=== PATIENT | male | born 1945 | race Caucasian/White ===

== ENCOUNTER 2020-11-17 05:33 | Observation (INO) ==
[2020-11-17] MEDS ORDERED: MECLIZINE HCL 25 MG TAB PO STA (05:46)
[2020-11-17] MEDS ORDERED: SODIUM CHLORIDE 0.9% 1000ML 500 ML IV ONE (05:54)
[2020-11-17] MEDS ORDERED: ONDANSETRON INJ 2 MG/ML 2 ML VIAL IV STA (05:54)
--- NOTE | 2020-11-17 05:54 | Emergency Department Note ---
History of Present Illness General Chief complaint: Ear Pain/Problem Stated complaint: OFF BALANCE, EAR PAIN Time Seen by Provider: 11/17/20 05:46 History of Present Illness This 75-year-old presents to the ER complaining of constant vertigo since last night after having surgery yesterday on his ear by Dr. Irving Location: Generalized Quality: Dizzy Severity: Moderate Duration: Tonight Timing: Tonight Context: Patient was concerned and came in Modifying factors: better with rest; worse with activity Patient states he has never been this dizzy before in his life. He had ear surgery yesterday. Patient had a cholesteatoma repaired. Patient denies chest pain, dyspnea, localized weakness, fever, chills. He states he is too dizzy to walk. 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 #2 ea 12/26/19 11/12/20 Rx miscellaneous medical supply #1 ea 01/09/20 11/12/20 Rx nitroglycerin 0.4 mg sublingual 0.4 mg SUBLINGUAL Q5M PRN 05/04/20 11/17/20 History tablet ranolazine 500 mg tablet,extended 500 mg PO BID 07/23/20 11/17/20 History release,12 hr miscellaneous medical supply #1 ea 10/09/20 11/12/20 Rx ferrous sulfate 325 mg (65 mg 325 mg PO Q OTHER DAY tab 10/30/20 11/17/20 History iron) tablet amlodipine 5 mg PO QAM 11/13/20 11/17/20 History clopidogrel 75 mg PO QPM 11/13/20 11/17/20 History docusate sodium 100 mg PO QAM 11/13/20 11/17/20 History metoprolol succinate 50 mg PO QAM 11/13/20 11/17/20 History pantoprazole 40 mg PO QPM 11/13/20 11/17/20 History pravastatin 40 mg PO QPM 11/13/20 11/17/20 History vitamin B complex 1 tab PO QAM 11/13/20 11/17/20 History hydrocodone-acetaminophen 1 tab PO Q4H PRN #20 tab 11/16/20 11/17/20 Rx tadalafil [Cialis] 10 - 20 mg PO DIRECTED PRN 11/17/20 11/17/20 History Allergies Allergy/AdvReac Type Severity Reaction Status Date / Time prednisone Allergy Intermediate swelling, Verified 11/17/20 07:29 retained fluid Past Med/Surg History Medical History Acid reflux Anemia 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 hemolytic anemia 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 Benign neoplasm of appendix Coronary artery disease s/p stents x2 (2004), stent x1 (04/02/20) after abnormal stress test Hearing deficit High cholesterol Hypertension MGUS (monoclonal gammopathy of unknown significance) Monoclonal paraproteinemia Osteoarthritis Peripheral vascular disease Surgical History H/O colonoscopy History of amputation of toe x2 (right big toe, 2nd toe) History of cardiac cath 2004 (stent x2) 04/02/2020 ([facility] > proximal left circumflex arthrectomy and stent History of carpal tunnel surgery right wrist History of cholecystectomy History of procedure for peripheral vascular disease RLE cook zilver stent (2017) History of tooth extraction upper partial History of total left knee replacement (TKR) Hx of cataract surgery Status post below knee amputation of right lower extremity 2017 Family History Father Hearing loss Heart disease Myocardial infarction Hypertension Mother Heart disease Myocardial infarction Other No family history of adverse response to anesthesia No family history of allergies No family history of bleeding disorder Denies family history of Ovarian cancer Prostate cancer Breast cancer Colorectal cancer Cancer Stroke Social History Smoking Status: Never smoker Second Hand Exposure: No; Hx Alcohol Use: No Hx Substance Use: No Preferred Language: Venezuelan Communication Ability: Effective Visual Impairment: No Limitations Hearing Ability: Use of Hearing Aid Technical Solutions Director Required: No Beliefs That Will Affect Care: None marital status: / Current Living Situation: Alone current occupational status: retired Feels Safe at Home: Yes Safety Concerns: Feels Safe At This Time Childhood Exposure to Second-Hand Smoke: No Dental Care, Regularly: Yes Physical Activity Frequency: Does not Exercise Seatbelt Use: always Sunscreen Use: Yes Assistive Devices: Prosthesis Review of Systems A total of 10 systems reviewed and were otherwise negative Physical Exam Vital Signs Vital Signs - 24 hr 11/17/20 05:37 11/17/20 05:58 11/17/20 06:00 Temperature 36.2 C L Temperature Source Temporal Artery Scan Pulse Rate - Lying Pulse Rate - Sitting Pulse Rate 65 65 70 Pulse Rate [Bilateral Apical] Pulse Rate from SpO2 Sensor Respiratory Rate 18 14 19 Blood Pressure - Lying Blood Pressure - Sitting Blood Pressure 148/71 H Blood Pressure [Right Arm] Blood Pressure Mean 96 Blood Pressure Mean [Right Arm] Pulse Oximetry 96 Oxygen Delivery Method Room Air Sepsis New/Unexplained Change in Mental Status N/A Sepsis Action Taken by Nursing No Action Required 11/17/20 06:11 11/17/20 06:12 11/17/20 06:16 Temperature Temperature Source Pulse Rate - Lying 69 Pulse Rate - Sitting 70 Pulse Rate 71 68 Pulse Rate [Bilateral Apical] 61 Pulse Rate from SpO2 Sensor 71 67 Respiratory Rate 16 19 20 Blood Pressure - Lying 171/79 H Blood Pressure - Sitting 167/75 H Blood Pressure 171/79 H 167/75 H Blood Pressure [Right Arm] 167/75 H Blood Pressure Mean 109 105 Blood Pressure Mean [Right Arm] 105 Pulse Oximetry 97 99 96 Oxygen Delivery Method Room Air Sepsis New/Unexplained Change in Mental Status Sepsis Action Taken by Nursing 11/17/20 06:17 11/17/20 06:30 11/17/20 07:00 Temperature Temperature Source Pulse Rate - Lying Pulse Rate - Sitting Pulse Rate 59 L 62 Pulse Rate [Bilateral Apical] Pulse Rate from SpO2 Sensor 60 62 Respiratory Rate 11 L 16 Blood Pressure - Lying Blood Pressure - Sitting Blood Pressure Blood Pressure [Right Arm] Blood Pressure Mean Blood Pressure Mean [Right Arm] Pulse Oximetry 95 98 97 Oxygen Delivery Method Room Air Sepsis New/Unexplained Change in Mental Status Sepsis Action Taken by Nursing 11/17/20 07:30 11/17/20 08:00 11/17/20 08:30 Temperature Temperature Source Pulse Rate - Lying Pulse Rate - Sitting Pulse Rate 61 48 L 76 Pulse Rate [Bilateral Apical] Pulse Rate from SpO2 Sensor 60 48 L Respiratory Rate 14 12 15 Blood Pressure - Lying Blood Pressure - Sitting Blood Pressure Blood Pressure [Right Arm] Blood Pressure Mean Blood Pressure Mean [Right Arm] Pulse Oximetry 98 97 Oxygen Delivery Method Sepsis New/Unexplained Change in Mental Status Sepsis Action Taken by Nursing 11/17/20 08:38 11/17/20 08:39 11/17/20 09:00 Temperature Temperature Source Pulse Rate - Lying Pulse Rate - Sitting Pulse Rate 62 60 74 Pulse Rate [Bilateral Apical] Pulse Rate from SpO2 Sensor 62 60 71 Respiratory Rate 17 9 L 21 Blood Pressure - Lying Blood Pressure - Sitting Blood Pressure 187/53 H 172/74 H Blood Pressure [Right Arm] Blood Pressure Mean 97 106 Blood Pressure Mean [Right Arm] Pulse Oximetry 99 98 96 Oxygen Delivery Method Sepsis New/Unexplained Change in Mental Status Sepsis Action Taken by Nursing 11/17/20 09:30 11/17/20 09:31 Temperature Temperature Source Pulse Rate - Lying Pulse Rate - Sitting Pulse Rate 66 72 Pulse Rate [Bilateral Apical] Pulse Rate from SpO2 Sensor 66 69 Respiratory Rate 21 20 Blood Pressure - Lying Blood Pressure - Sitting Blood Pressure 174/49 H Blood Pressure [Right Arm] Blood Pressure Mean 90 Blood Pressure Mean [Right Arm] Pulse Oximetry 97 98 Oxygen Delivery Method Sepsis New/Unexplained Change in Mental Status Sepsis Action Taken by Nursing VITALS: Vitals are noted on the nurse's note and reviewed by myself. Vital signs stable. GENERAL: Pleasant male, in no acute distress, nondiaphoretic, well-developed well-nourished. SKIN: The skin was without rashes, erythema, edema, or bruising. There is no tenting of the skin. Capillary reflex less than 2 seconds. HEAD: Normocephalic atraumatic. EARS: Left ear with packing in place, right ear with hearing aid in place. EYES: Pupils equal round and reactive to light and accommodation. Horizontal nystagmus, conjunctivae without injection, sclerae without icterus. Extraocular movements intact. NOSE: Patent, turbinates without inflammation or discharge. No sinus tenderness. MOUTH: Mucous membranes moist. Pharynx without erythema or exudate. Uvula midline. Airway patent. Tongue does not deviate. NECK: Supple without nuchal rigidity. No lymphadenopathy. No thyromegaly. Cervical spine is nontender. No JVD. HEART: Regular rate and rhythm LUNGS: Clear to auscultation bilaterally without wheezes, rales or rhonchi. No retractions or accessory muscle use. ABDOMEN: Positive bowel sounds x 4. Normal tympanic percussion. Soft, nontender, without masses or organomegaly. Yuan sign negative. No guarding or rebound tenderness. No CVA tenderness MUSCULOSKELETAL: No muscle atrophy, erythema, or edema noted. NEURO: Patient was alert and oriented to person place and time. Normal sensation to light and sharp touch. No focal neurological deficits. Cranial nerves II through XII grossly intact. No pronator drift. Cerebellar exam intact. Course Administered Medications Acetaminophen (Acetaminophen 325 Mg Tab) 650 mg PO Q4H PRN PRN Reason: Pain or Fever Stop: 12/17/20 10:28 Last Admin: 11/18/20 00:39 Dose: 650 mg Documented by: [id number] Amlodipine Besylate (Amlodipine Besylate 5 Mg Tab) 5 mg PO QAM [facility] Stop: 12/17/20 10:28 Last Admin: 11/17/20 11:11 Dose: 5 mg Documented by: [id number] Aspirin (Aspirin 81 Mg Ectab) 81 mg PO QPM LIVAN Stop: 12/17/20 20:59 Last Admin: 11/17/20 20:07 Dose: 81 mg Documented by: [id number] Clopidogrel Bisulfate (Clopidogrel Bisulfate 75 Mg Tab) 75 mg PO QPM LIVAN Stop: 12/17/20 20:59 Last Admin: 11/17/20 20:08 Dose: 75 mg Documented by: [id number] Cyanocobalamin (Cyanocobalamin 500 Mcg Tablet (Vitamin B-12)) 250 mcg PO QAM [facility] Stop: 12/17/20 10:59 Last Admin: 11/17/20 11:11 Dose: 250 mcg Documented by: [id number] Docusate Sodium (Docusate Sodium 100 Mg Cap) 100 mg PO BID LIVAN Stop: 12/17/20 10:59 Last Admin: 11/17/20 20:06 Dose: 100 mg Documented by: [id number] Admin: 11/17/20 11:11 Dose: 100 mg Documented by: [id number] Enoxaparin Sodium (Enoxaparin Inj 40 Mg/0.4 Ml Syr) 40 mg SQ Q24H LIVAN Stop: 12/17/20 10:59 Last Admin: 11/17/20 11:11 Dose: 40 mg Documented by: [id number] Ferrous Sulfate (Ferrous Sulfate 325 Mg Tab) 325 mg PO Q2D@0900 [facility] Stop: 12/17/20 10:59 Last Admin: 11/17/20 11:11 Dose: 325 mg Documented by: [id number] Folic Acid (Folic Acid 400 Mcg Tab) 800 mcg PO BID LIVAN Stop: 12/17/20 10:59 Last Admin: 11/17/20 20:07 Dose: 800 mcg Documented by: [id number] Admin: 11/17/20 11:11 Dose: 800 mcg Documented by: [id number] Meclizine HCl (Meclizine Hcl 25 Mg Tab) 25 mg PO TID LIVAN Stop: 12/17/20 13:59 Last Admin: 11/17/20 20:05 Dose: 25 mg Documented by: [id number] Admin: 11/17/20 13:56 Dose: 25 mg Documented by: [id number] Metoprolol Succinate (Metoprolol Succ 50mg Ext Rel Tab) 50 mg PO QAM [facility] Stop: 12/17/20 10:59 Last Admin: 11/17/20 11:11 Dose: 50 mg Documented by: [id number] Pantoprazole Sodium (Pantoprazole 40 Mg Tab) 40 mg PO QPM [facility] Stop: 12/17/20 20:59 Last Admin: 11/17/20 20:09 Dose: 40 mg Documented by: [id number] Vitamin B Complex (Vitamin B Complex Tab) 1 tab PO QAM [facility] Stop: 12/17/20 10:59 Last Admin: 11/17/20 11:11 Dose: 1 tab Documented by: [id number] Discontinued Medications Sodium Chloride (Nss 1000ml) 500 mls @ 999 mls/hr IV .Q31M ONE Stop: 11/17/20 06:24 Last Infusion: 11/17/20 10:20 Dose: 0 mls/hr Documented by: [id number] Admin: 11/17/20 06:24 Dose: 999 mls/hr Documented by: [id number] Meclizine HCl (Meclizine Hcl 25 Mg Tab) 25 mg PO NOW STA Stop: 11/17/20 05:47 Last Admin: 11/17/20 05:54 Dose: 25 mg Documented by: [id number] Ondansetron HCl (Ondansetron Inj 2 Mg/Ml 2 Ml Vial) 4 mg IV NOW STA Stop: 11/17/20 05:55 Last Admin: 11/17/20 06:24 Dose: 4 mg Documented by: [id number] Pravastatin Sodium (Pravastatin Sod 40 Mg Tab) 40 mg PO QPM LIVAN Stop: 12/17/20 20:59 Last Admin: 11/17/20 20:09 Dose: 40 mg Documented by: [id number] Ranolazine (Ranolazine 500 Mg Er Tab) 500 mg PO BID LIVAN Stop: 12/17/20 10:59 Last Admin: 11/17/20 20:10 Dose: 500 mg Documented by: [id number] Admin: 11/17/20 11:11 Dose: 500 mg Documented by: [id number] Medical Decision Making Medical Records Attestation: I reviewed the patient's medical records. Home Medications Current Medication List: was personally reviewed by me Laboratory Data Attestation: I reviewed the patient's lab results. Result diagrams: 11/17/20 05:50 11/17/20 06:53 Lab Results 11/17/20 11/17/20 11/17/20 Range/Units 05:50 05:50 06:25 WBC 12.58 H (4.8-10.8) K/uL RBC 2.55 L (4.7-6.1) M/uL Hgb 10.4 L (14.0-18.0) g/dL Hct 26.3 L (42-52) % MCV 103.1 H (80-100) fL MCH 40.8 H (25-34) pg MCHC 39.5 H (32-36) g/dL Plt Count 265 (130-400) K/uL Immature Gran % (Auto) 0.2 % Neut % (Auto) 79.2 % Lymph % (Auto) 10.7 % Bullitt % (Auto) 9.7 % Eos % (Auto) 0.1 % Baso % (Auto) 0.1 % Neut # (Auto) 9.98 H (1.4-6.5) K/uL Lymph # (Auto) 1.34 (1.2-3.4) K/uL Bullitt # (Auto) 1.22 H (0.11-0.59) K/uL Eos # (Auto) 0.01 (0-0.5) K/uL Baso # (Auto) 0.01 (0-0.2) K/uL Immature Gran # (Auto) 0.02 (0.00-0.02) K/uL RBC Agglutinates 3+ Sodium 135 L (136-145) mmol/L Potassium (3.5-5.1) mmol/L Chloride 104 (98-107) mmol/L Carbon Dioxide 24 (21-32) mmol/L Anion Gap 7.0 (3-11) BUN 17 (7-18) mg/dl Creatinine 1.26 (0.6-1.4) mg/dl Est Cr Clr Drug Dosing 50.3 ml/min Est GFR ( Amer) 63.8 Est GFR (Non-Af Amer) 55.0 BUN/Creatinine Ratio 13.3 (10-20) Glucose 114 H (70-99) mg/dl Calcium 8.3 L (8.5-10.1) mg/dl Total Bilirubin 0.9 (0.2-1) mg/dl AST (15-37) U/L ALT 19 (12-78) U/L Alkaline Phosphatase 67 (45-117) U/L Total Protein 6.7 (6.4-8.2) gm/dl Albumin 3.5 (3.4-5.0) gm/dl Globulin 3.2 (2.5-4.0) gm/dl Albumin/Globulin Ratio 1.1 (0.9-2) COVID-19 Eval Order CovFluRsv at [facility] SARS-CoV-2 (PCR) (Negative) Influenza Type A (PCR) (Neg) Influenza Type B (PCR) (Neg) RSV (RT-PCR) (Neg) 11/17/20 11/17/20 Range/Units 06:25 06:53 WBC (4.8-10.8) K/uL RBC (4.7-6.1) M/uL Hgb (14.0-18.0) g/dL Hct (42-52) % MCV (80-100) fL MCH (25-34) pg MCHC (32-36) g/dL Plt Count (130-400) K/uL Immature Gran % (Auto) % Neut % (Auto) % Lymph % (Auto) % Bullitt % (Auto) % Eos % (Auto) % Baso % (Auto) % Neut # (Auto) (1.4-6.5) K/uL Lymph # (Auto) (1.2-3.4) K/uL Bullitt # (Auto) (0.11-0.59) K/uL Eos # (Auto) (0-0.5) K/uL Baso # (Auto) (0-0.2) K/uL Immature Gran # (Auto) (0.00-0.02) K/uL RBC Agglutinates Sodium (136-145) mmol/L Potassium 3.7 (3.5-5.1) mmol/L Chloride (98-107) mmol/L Carbon Dioxide (21-32) mmol/L Anion Gap (3-11) BUN (7-18) mg/dl Creatinine (0.6-1.4) mg/dl Est Cr Clr Drug Dosing ml/min Est GFR ( Amer) Est GFR (Non-Af Amer) BUN/Creatinine Ratio (10-20) Glucose (70-99) mg/dl Calcium (8.5-10.1) mg/dl Total Bilirubin (0.2-1) mg/dl AST 13 L (15-37) U/L ALT (12-78) U/L Alkaline Phosphatase (45-117) U/L Total Protein (6.4-8.2) gm/dl Albumin (3.4-5.0) gm/dl Globulin (2.5-4.0) gm/dl Albumin/Globulin Ratio (0.9-2) COVID-19 Eval Order SARS-CoV-2 (PCR) NEGATIVE (Negative) Influenza Type A (PCR) Negative (Neg) Influenza Type B (PCR) Negative (Neg) RSV (RT-PCR) Negative (Neg) Imaging Data Attestation: I personally reviewed and interpreted this imaging study as follows: MDM Narrative Prior records/ancillary studies reviewed. Triage Nursing notes reviewed. The patient's history was concerning for dizziness and vertigo. Differential diagnosis: Etiologies such as benign positional vertigo, dehydration, hypovolemia, anemia, tumor, infection, hypoglycemia, electrolyte abnormalities, cardiac sources, intracerebral event, toxicologic, neurologic, as well as others were entertained. Physical examination: As above. ER treatment provided: An order was placed for continuous cardiac monitoring. The monitor shows a rate of 60-100 with a sinus rhythm. IV hydration with normal saline Meclizine, Zofran On reassessment the patient felt well. Diagnostics interpretation by me: ECG: Normal sinus rhythm without ischemic change or evidence of dysrhythmia. Normal sinus, no acute ST-T wave changes. Impression normal sinus rhythm interpreted by myself EKG ordered for dizziness I think arrhythmia is unlikely. EKG shows normal sinus rhythm with no interval abnormalities such as QT prolongation or WPW. There are no findings to suggest Brugada syndrome. Cardiac monitoring in the emergency department reveals no tachycardic or bradycardic dysrhythmia. Hypertrophic cardiomyopathy was considered but there are no clear historical elements pointing toward this. EKG is not suggestive. The QRS voltage is not extremely large and there are no suggestive Q waves. The labs: Glucose 114 Mild leukocytosis, mild anemia Consultation: A consultation was placed with ENT, Dr. Irving. the case was discussed and diagnostics were reviewed. He recommends medical admission and he will evaluate the patient. He wants the patient n.p.o. Medicine was consulted and will evaluate the patient. The patient was evaluated in the ER for further treatment. Exam and history seem consistent with vertigo. Patient just had ear surgery. ENT wants him admitted to medicine since he has multiple medical comorbidities. ENT will evaluate the patient. Dr. Irving does not want CT imaging. Medicine was consulted. By the evaluation outlined above emergent etiologies such as hypoglycemia, electrolyte abnormalities, cardiac sources, intracerebral event, as well as others were deemed relatively unlikely. The pt informed about the findings as listed above. All questions were answered and pleased with the treatment. The chart was completed utilizing [employer] voice recognition software. Grammatical errors, random word insertions, pronoun errors, and incomplete sentences are an occassional consequence of this system due to software limitations, ambient noise, and hardware issues. Any formal questions or concerns about the content, text, or information contained within the body of this dictation should be directly addressed to the physician inventory assistant for clarification. Impression & Plan Vertigo Discharge Plan Visit Data Chief Complaint: Ear Pain/Problem Stated Complaint: OFF BALANCE, EAR PAIN ED Provider: Luis Duron ED Midlevel Provider: Meredith Cavazos Discharge Problem: Vertigo Patient Disposition: Admitted As Inpatient Condition: Fair Discharge Instructions Interventions: ED Discharge Assessment Last Done: 11/17/20 10:23
--- NOTE | 2020-11-17 06:14 | Emergency Department Note ---
ED Visit Note I have seen and examined this patient with Meredith Cavazos and generally agree with the treatment plan as discussed. .
[2020-11-17 06:43] LABS: Albumin Globulin Ratio 1.1 (0.9-2); Albumin Level 3.5 gm/dl (3.4-5.0); BUN Creatinine Ratio 13.3 (10-20); Bilirubin,Total 0.9 mg/dl (0.2-1); Calcium 8.3 mg/dl (8.5-10.1); Creatinine Clr Calc Pharmacy 50.3 ml/min; Est GFR (African American) 63.8; Globulin 3.2 gm/dl (2.5-4.0); Total Protein 6.7 gm/dl (6.4-8.2)
[2020-11-17 07:19] LABS: Influenza A virus by PCR Negative (Neg); Influenza B virus by PCR Negative (Neg); RSV by PCR Negative (Neg); SARS CoV2 RNA(COVID-19) InHosp NEGATIVE (Negative)
[2020-11-17 07:26] LABS: Potassium 3.7 mmol/L (3.5-5.1)
[2020-11-17 07:30] LABS: Hematocrit (blood only) 26.3 % (42-52); Hemoglobin 10.4 g/dL (14.0-18.0); Mean Corpuscular Hemoglobin 40.8 pg (25-34); Mean Corpuscular Hgb Conc 39.5 g/dL (32-36); Mean Corpuscular Volume 103.1 fL (80-100); Platelet Count 265 K/uL (130-400); Red Blood Count 2.55 M/uL (4.7-6.1); White Blood Count 12.58 K/uL (4.8-10.8)
[2020-11-17 07:31] LABS: Agglutinated RBC 3+; Basophils # (auto) 0.01 K/uL (0-0.2); Basophils % (auto) 0.1 %; Eosinophils # (auto) 0.01 K/uL (0-0.5); Eosinophils % (auto) 0.1 %; Immature Granulocytes # (auto) 0.02 K/uL (0.00-0.02); Immature Granulocytes % (auto) 0.2 %; Lymphocytes # (auto) 1.34 K/uL (1.2-3.4); Lymphocytes % (auto) 10.7 %; Monocytes # (auto) 1.22 K/uL (0.11-0.59); Monocytes % (auto) 9.7 %; Neutrophils # (auto) 9.98 K/uL (1.4-6.5); Neutrophils % (auto) 79.2 %
--- NOTE | 2020-11-17 07:52 | History & Physical Report ---
Date of Service November 17, 2020 Assessment & Plan (1) Vertigo: Here with vertigo secondary to possible inner ear fluid leak with strain status post cholesteatoma surgery on 11/16 Appreciate ENT consultation -Admit to medical floor with telemetry -Treat with meclizine 25 mg p.o. 3 times daily-this has caused tremendous improvement already in the ER -Was given half liter of normal saline in the ER, is able to take p.o. and can hydrate orally -ENT suggested droperidol, however can cause QT prolongation has coronary artery disease history and borderline prolonged QTC on EKG-hold off for now as meclizine is working well -Prevent him from straining or bearing down at all-bedrest with bedside commode only for now -Start docusate twice daily to prevent constipation and straining -Advised patient to not blow nose (2) Cholesteatoma of attic of left ear: As above, status post surgery for this on 11/16 Hydrocodone as needed for pain Otherwise as above (3) Anemia: Chronic and stable, has autoimmune hemolytic anemia and cold agglutinins, and MGUS as per hematology notes Is macrocytic Review of hematology notes shows that he just had labs drawn in 09/2020 with normal B12 and folate Follow CBC Continue folate and B12 supplementation as well as vitamin B complex (4) MGUS (monoclonal gammopathy of unknown significance): Follows with hematology (5) Acid reflux: Continue pantoprazole (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 twice daily Monitor on telemetry (9) High cholesterol: Continue pravastatin (10) Hypertension: Blood pressures are normal Continue home amlodipine, metoprolol (11) Peripheral vascular disease: Status post intervention to the right lower extremity in the past but was unsuccessful and ended up with a right BKA Continue aspirin, Plavix, statin (12) Status post below knee amputation of right lower extremity: Noted, has prosthesis (13) Vitamin B12 deficiency: Continue B12 supplementation (14) DVT prophylaxis: Lovenox SQ-okay with ENT to give such given that he will be on bedrest SCD to the left lower extremity Disposition-admit to medical floor with telemetry Full code as per discussion with patient History of Present Illness Chief Complaint: Dizziness Primary Care Provider: Lilian Olivarez MD [id number] patient is a-year-old male with a history of CAD with stents, MGUS and autoimmune hemolytic anemia, HTN, OA, GERD, PAD with right BKA, who presents to the ER the day after having a left modified radical tympanomastoidectomy with Dr. Irving for cholesteatoma with severe vertigo that started at 5 AM this morning. He denies any nausea or vomiting. Denies lightheadedness or syncope. No chest pain or shortness of breath. No abdominal pains. No fevers or chills. In the ER, he was found to have a mild leukocytosis, mild stable anemia, and electrolytes were otherwise fairly normal. ENT was consulted and saw him in the ER. I discussed the case with Dr. Irving who believes that the vertigo is due to the left lateral semicircular canal fistula with possible disturbance of the matrix of a cholesteatoma over the lateral semicircular canal fistula versus straining causing leakage of perilymph which is causing vertigo. He recommended treatment with meclizine and droperidol, however his QT C was borderline prolonged therefore I defer on the droperidol at this time. Patient was already feeling significantly improved with 1 dose of meclizine in the ER and half liter of normal saline. He will be admitted for vertigo. Allergies Allergy/AdvReac Type Severity Reaction Status Date / Time prednisone Allergy Intermediate swelling, Verified 11/17/20 07:29 retained fluid 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 #2 ea 12/26/19 11/12/20 Rx miscellaneous medical supply #1 ea 01/09/20 11/12/20 Rx nitroglycerin 0.4 mg sublingual 0.4 mg SUBLINGUAL Q5M PRN 05/04/20 11/17/20 History tablet ranolazine 500 mg tablet,extended 500 mg PO BID 07/23/20 11/17/20 History release,12 hr miscellaneous medical supply #1 ea 10/09/20 11/12/20 Rx ferrous sulfate 325 mg (65 mg 325 mg PO Q OTHER DAY tab 10/30/20 11/17/20 History iron) tablet amlodipine 5 mg PO QAM 11/13/20 11/17/20 History clopidogrel 75 mg PO QPM 11/13/20 11/17/20 History docusate sodium 100 mg PO QAM 11/13/20 11/17/20 History metoprolol succinate 50 mg PO QAM 11/13/20 11/17/20 History pantoprazole 40 mg PO QPM 11/13/20 11/17/20 History pravastatin 40 mg PO QPM 11/13/20 11/17/20 History vitamin B complex 1 tab PO QAM 11/13/20 11/17/20 History hydrocodone-acetaminophen 1 tab PO Q4H PRN #20 tab 11/16/20 11/17/20 Rx tadalafil [Cialis] 10 - 20 mg PO DIRECTED PRN 11/17/20 11/17/20 History Past Med/Surg History Medical History Acid reflux Anemia Autoimmune hemolytic anemia 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 Benign neoplasm of appendix Coronary artery disease s/p stents x2 (2004), stent x1 (04/02/20) after abnormal stress test Hearing deficit High cholesterol Hypertension MGUS (monoclonal gammopathy of unknown significance) Monoclonal paraproteinemia Osteoarthritis Peripheral vascular disease Surgical History H/O colonoscopy History of amputation of toe x2 (right big toe, 2nd toe) History of cardiac cath 2004 (stent x2) 04/02/2020 ([facility]) > proximal left circumflex arthrectomy and stent History of carpal tunnel surgery right wrist History of cholecystectomy History of procedure for peripheral vascular disease RLE cook zilver stent (2017) History of tooth extraction upper partial History of total left knee replacement (TKR) Hx of cataract surgery Status post below knee amputation of right lower extremity 2018 Family History Father Hearing loss Heart disease Myocardial infarction Hypertension Mother Heart disease Myocardial infarction Other No family history of adverse response to anesthesia No family history of allergies No family history of bleeding disorder Denies family history of Ovarian cancer Prostate cancer Breast cancer Colorectal cancer Cancer Stroke Social History Smoking Status: Never smoker Second Hand Exposure: No; Hx Alcohol Use: No Hx Substance Use: No Preferred Language: Khmer Communication Ability: Effective Visual Impairment: No Limitations Hearing Ability: Use of Hearing Aid Laboratory Coordinator Required: No Beliefs That Will Affect Care: None marital status: / Current Living Situation: Alone current occupational status: retired Feels Safe at Home: Yes Safety Concerns: Feels Safe At This Time Childhood Exposure to Second-Hand Smoke: No Dental Care, Regularly: Yes Physical Activity Frequency: Does not Exercise Seatbelt Use: always Sunscreen Use: Yes Assistive Devices: Prosthesis Review of Systems Review of Systems: All systems reviewed & are unremarkable except as noted in HPI & below Physical Exam Constitutional: WD/WN, vitals as above Eyes: PERRL, conjunctivae normal, anicteric sclerae + nystagmus (With lateral gaze) ENMT: Ears: + external ear abnormality (Left ear with dressing and patch in place, not removed-examined by ENT) Neck: trachea midline, no thyromegaly Respiratory: normal respiratory effort, lungs clear to auscultation Cardiovascular: Rate/Rhythm: regular rate and regular rhythm Heart Sounds: no murmur Extremities: + edema (Mild pitting edema 1+ in the left leg) Chest (Breasts): Chest: normal inspection of chest Gastrointestinal (Abdomen): normal bowel sounds, soft, nontender, no hepatosplenomegaly Musculoskeletal: Extremities: + extremities abnormal to inspection (Right BKA), no cyanosis and no clubbing Skin: + rash (Chronic venous stasis of left leg) Neurologic: moves all extremities and awake; no focal motor deficits Psychiatric: A+Ox3, euthymic affect Lymphatic: no lymphedema Results & Data Results & Data ([facility]) Vital Signs (Past 12 Hours) Vital Signs Temp Pulse Pulse Resp BP BP Pulse Ox 11/17/20 06:17 95 11/17/20 06:16 61 20 167/75 H 96 11/17/20 05:37 36.2 C L 65 18 148/71 H 96 Laboratory Results Laboratory Results WBC 12.58 K/uL (4.8-10.8) H 11/17/20 05:50 RBC 2.55 M/uL (4.7-6.1) L 11/17/20 05:50 Hgb 10.4 g/dL (14.0-18.0) L 11/17/20 05:50 Hct 26.3 % (42-52) L 11/17/20 05:50 MCV 103.1 fL (80-100) H 11/17/20 05:50 MCH 40.8 pg (25-34) H 11/17/20 05:50 MCHC 39.5 g/dL (32-36) H 11/17/20 05:50 Plt Count 265 K/uL (130-400) 11/17/20 05:50 Immature Gran % (Auto) 0.2 % 11/17/20 05:50 Neut % (Auto) 79.2 % 11/17/20 05:50 Lymph % (Auto) 10.7 % 11/17/20 05:50 [place] % (Auto) 9.7 % 11/17/20 05:50 Eos % (Auto) 0.1 % 11/17/20 05:50 Baso % (Auto) 0.1 % 11/17/20 05:50 Neut # (Auto) 9.98 K/uL (1.4-6.5) H 11/17/20 05:50 Lymph # (Auto) 1.34 K/uL (1.2-3.4) 11/17/20 05:50 [place] # (Auto) 1.22 K/uL (0.11-0.59) H 11/17/20 05:50 Eos # (Auto) 0.01 K/uL (0-0.5) 11/17/20 05:50 Baso # (Auto) 0.01 K/uL (0-0.2) 11/17/20 05:50 Immature Gran # (Auto) 0.02 K/uL (0.00-0.02) 11/17/20 05:50 RBC Agglutinates 3+ 11/17/20 05:50 Sodium 135 mmol/L (136-145) L 11/17/20 05:50 Potassium 3.7 mmol/L (3.5-5.1) 11/17/20 06:53 Chloride 104 mmol/L (98-107) 11/17/20 05:50 Carbon Dioxide 24 mmol/L (21-32) 11/17/20 05:50 Anion Gap 7.0 (3-11) 11/17/20 05:50 BUN 17 mg/dl (7-18) 11/17/20 05:50 Creatinine 1.26 mg/dl (0.6-1.4) 11/17/20 05:50 Est Cr Clr Drug Dosing 50.3 ml/min 11/17/20 05:50 Est GFR ( Amer) 63.8 11/17/20 05:50 Est GFR (Non-Af Amer) 55.0 11/17/20 05:50 BUN/Creatinine Ratio 13.3 (10-20) 11/17/20 05:50 Glucose 114 mg/dl (70-99) H 11/17/20 05:50 Calcium 8.3 mg/dl (8.5-10.1) L 11/17/20 05:50 Total Bilirubin 0.9 mg/dl (0.2-1) 11/17/20 05:50 AST 13 U/L (15-37) L 11/17/20 06:53 ALT 19 U/L (12-78) 11/17/20 05:50 Alkaline Phosphatase 67 U/L (45-117) 11/17/20 05:50 Total Protein 6.7 gm/dl (6.4-8.2) 11/17/20 05:50 Albumin 3.5 gm/dl (3.4-5.0) 11/17/20 05:50 Globulin 3.2 gm/dl (2.5-4.0) 11/17/20 05:50 Albumin/Globulin Ratio 1.1 (0.9-2) 11/17/20 05:50 COVID-19 Eval Order CovFluRsv at [facility] 11/17/20 06:25 SARS-CoV-2 (PCR) NEGATIVE (Negative) 11/17/20 06:25 Influenza Type A (PCR) Negative (Neg) 11/17/20 06:25 Influenza Type B (PCR) Negative (Neg) 11/17/20 06:25 RSV (RT-PCR) Negative (Neg) 11/17/20 06:25 ECG Additional Comments: ECG on 11/17/2020 at 5:50 AM with normal sinus rhythm, rate 64, nonspecific T wave abnormality in aVF and V3, QTC 449 Code Status & VTE Plan Code Status Full code VTE Prophylaxis Plan VTE Prophylaxis will be ordered: Yes PG Care Time/CCT Total # of Minutes Spent Total Time Spent with Patient: Total time spent is greater than 50% in coordination of care (as documented) at patient's floor/unit and/or counseling patient: Coding Level of Care Code 34559 Initial Inpt Care Lvl 3 Diagnoses Vertigo R42 Cholesteatoma of attic of left ear H71.02 Anemia D64.9 MGUS (monoclonal gammopathy of unknown significance) D47.2 Acid reflux K21.9 Cold agglutinin disease D59.1 Autoimmune hemolytic anemia D59.1 Coronary artery disease I25.10 High cholesterol E78.00 Hypertension I10 Peripheral vascular disease I73.9 Status post below knee amputation of right lower extremity Z89.511 Vitamin B12 deficiency E53.8 DVT prophylaxis Z29.9
--- NOTE | 2020-11-17 09:24 | ENT Consultation ---
Date of Consultation November 17, 2020 Assessment & Plan (1) Vertigo: The vertigo is due to left lateral semicircular canal fistula. 2 possibilities causing the vertigo would be #1 disturbance of the matrix of the cholesteatoma over the lateral semicircular canal fistula during surgery, #2 str aining causing leakage of perilymph then causing vertigo. The best course of action at this time would be to treat him symptomatically with droperidol and meclizine to see if this stops the vertigo, hoping for the fistula to seal itself. With the tuning fork lateralizing to the left ear indicating that there is still hearing in the left ear I would hesitate on reexploration. With reexploration and removal of the residual cholesteatoma and patching the fistula with muscle, there would be a high risk of deafness. The case was discussed with Dr. Figueroa. We also discussed anticoagulation. (2) Cholesteatoma of attic of left ear: The cholesteatoma sac has been decompressed with a modified radical mastoidectomy. (3) Chronic mastoiditis of right side: He has a long history of attic pocket of the right ear, previously cleaned by Dr. Gore. History of Present Illness Reason for Consultation: Vertigo History of Present Illness This 75-year-old gentleman presented with acute onset of vertigo 5 AM this morning and was admitted via the emergency room. History is pertinent in that he has had a long history of chronic otitis media of the right ear and then had pressure and pain and dizziness from the left ear evaluated in August by [facility] and found to have cholesteatoma of the left ear. The left ear was debrided and his vertigo subsided at that time. He presented to our office because he had dizziness when he pushed his hearing aid in and because of persistent pain and pressure in the left ear and progressive hearing loss. He was found to have a large cholesteatoma with lateral semicircular canal fistula noted on CT scan. He underwent modified radical tympanomastoidectomy yesterday with the canal wall down and the sac decompressed but leaving the wall of the cholesteatoma undisturbed over the lateral canal. He did well postop and was sent home but developed dizziness 5 AM this morning. Allergies Allergy/AdvReac Type Severity Reaction Status Date / Time prednisone Allergy Intermediate swelling, Verified 11/17/20 07:29 retained fluid 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 #2 ea 12/26/19 11/12/20 Rx miscellaneous medical supply #1 ea 01/09/20 11/12/20 Rx nitroglycerin 0.4 mg sublingual 0.4 mg SUBLINGUAL Q5M PRN 05/04/20 11/17/20 History tablet ranolazine 500 mg tablet,extended 500 mg PO BID 07/23/20 11/17/20 History release,12 hr miscellaneous medical supply #1 ea 10/09/20 11/12/20 Rx ferrous sulfate 325 mg (65 mg 325 mg PO Q OTHER DAY tab 10/30/20 11/17/20 History iron) tablet amlodipine 5 mg PO QAM 11/13/20 11/17/20 History clopidogrel 75 mg PO QPM 11/13/20 11/17/20 History docusate sodium 100 mg PO QAM 11/13/20 11/17/20 History metoprolol succinate 50 mg PO QAM 11/13/20 11/17/20 History pantoprazole 40 mg PO QPM 11/13/20 11/17/20 History pravastatin 40 mg PO QPM 11/13/20 11/17/20 History vitamin B complex 1 tab PO QAM 11/13/20 11/17/20 History hydrocodone-acetaminophen 1 tab PO Q4H PRN #20 tab 11/16/20 11/17/20 Rx tadalafil [Cialis] 10 - 20 mg PO DIRECTED PRN 11/17/20 11/17/20 History Patient History Medical History Acid reflux Anemia Autoimmune hemolytic anemia 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 Benign neoplasm of appendix Coronary artery disease s/p stents x2 (2004), stent x1 (04/02/20) after abnormal stress test Hearing deficit High cholesterol Hypertension MGUS (monoclonal gammopathy of unknown significance) Monoclonal paraproteinemia Osteoarthritis Peripheral vascular disease Surgical History H/O colonoscopy History of amputation of toe x2 (right big toe, 2nd toe) History of cardiac cath 2004 (stent x2) 04/02/2020 ([facility]) > proximal left circumflex arthrectomy and stent History of carpal tunnel surgery right wrist History of cholecystectomy History of procedure for peripheral vascular disease RLE cook zilver stent (2018) History of tooth extraction upper partial History of total left knee replacement (TKR) Hx of cataract surgery Status post below knee amputation of right lower extremity 2017 Family History Father Hearing loss Heart disease Myocardial infarction Hypertension Mother Heart disease Myocardial infarction Other No family history of adverse response to anesthesia No family history of allergies No family history of bleeding disorder Denies family history of Ovarian cancer Prostate cancer Breast cancer Colorectal cancer Cancer Stroke Social History Smoking Status: Never smoker Second Hand Exposure: No; Hx Alcohol Use: Yes Alcohol type: beer Alcohol Intake Frequency: 4 or More x per/Week Hx Substance Use: No Preferred Language: Guamanian Communication Ability: Effective Visual Impairment: No Limitations Hearing Ability: Use of Hearing Aid Duplicate Maker Required: No Beliefs That Will Affect Care: None marital status: / Current Living Situation: Spouse current occupational status: retired Feels Safe at Home: Yes Childhood Exposure to Second-Hand Smoke: No Dental Care, Regularly: Yes Physical Activity Frequency: Does not Exercise Seatbelt Use: always Sunscreen Use: Yes Assistive Devices: Denture - Upper, Glasses, Hearing Aid - Bilateral and Prosthesis Physical Exam Constitutional: WD/WN, vitals as above Eyes: PERRL, conjunctivae normal, anicteric sclerae + nystagmus (He does have end gaze nystagmus on right and on the left) ENMT: Ears: + hearing impairment, + [place] abnormal (Tuning fork lateralized to the left ear), + unable to visualize TM (Packing in the left ear canal) and + mastoid abnormality (Mastoid dressing over the left ear.) Neck: trachea midline, no thyromegaly Respiratory: normal respiratory effort, lungs clear to auscultation Cardiovascular: RRR, no murmur, no edema Results & Data ([facility]) Vital Signs (Past 12 Hours) Vital Signs Temp Pulse Pulse Resp BP BP Pulse Ox 11/17/20 08:38 62 17 187/53 H 99 11/17/20 08:30 76 15 11/17/20 08:00 48 L 12 97 11/17/20 07:30 61 14 98 11/17/20 07:00 62 16 97 11/17/20 06:30 59 L 11 L 98 11/17/20 06:17 95 11/17/20 06:16 61 20 167/75 H 96 11/17/20 06:12 68 19 167/75 H 99 11/17/20 06:11 71 16 171/79 H 97 11/17/20 06:00 70 19 11/17/20 05:58 65 14 11/17/20 05:37 36.2 C L 65 18 148/71 H 96
[2020-11-17] MEDS ORDERED: HYDROCODONE/ACETAMOPHEN 5/325MG TAB PO PRN (10:29)
[2020-11-17] MEDS ORDERED: ACETAMINOPHEN 325 MG TAB PO PRN (10:29)
[2020-11-17] MEDS ORDERED: NITROGLYCERIN SL 0.4 MG/TAB TAB SL PRN (10:29)
[2020-11-17] MEDS ORDERED: MAGNESIUM HYDROXIDE SUSP 30 ML UDC PO PRN (10:29)
[2020-11-17] MEDS ORDERED: ONDANSETRON INJ 2 MG/ML 2 ML VIAL IV PRN (10:29)
[2020-11-17] MEDS ORDERED: POLYETHYLENE (MIRALAX) 17 GM PACK PO PRN (10:29)
--- NOTE | 2020-11-17 10:40 | Electrocardiogram Report ---
Test Reason : Blood Pressure : / mmHG Vent. Rate : 064 BPM Atrial Rate : 064 BPM P-R Int : 200 ms QRS Dur : 094 ms QT Int : 436 ms P-R-T Axes : 033 010 -07 degrees QTc Int : 449 ms Normal sinus rhythm Nonspecific T wave abnormality Abnormal ECG When compared with ECG of 25-MAR-2013 07:24, Premature ventricular complexes are no longer Present Nonspecific T wave abnormality now evident in Anterior leads Confirmed by Baljinder Hernandez ([id number]) on 11/17/2020 10:40:09 AM Referred By: REFERRED SELF Confirmed By:Baljinder Hernandez
[2020-11-17] MEDS ORDERED: FERROUS SULFATE 325 MG TAB PO SCH (11:00)
[2020-11-17] MEDS: DOCUSATE SODIUM 100 MG CAP PO SCH ×2 (11:11→20:06)
[2020-11-17] MEDS: CYANOCOBALAMIN 500 MCG TABLET (VITAMIN B-12) PO SCH (11:11)
[2020-11-17] MEDS: amLODIPine BESYLATE 5 MG TAB PO SCH (11:11)
[2020-11-17] MEDS: VITAMIN B COMPLEX TAB PO SCH (11:11)
[2020-11-17] MEDS: METOPROLOL SUCC 50MG EXT REL TAB PO SCH (11:11)
[2020-11-17] MEDS: ENOXAPARIN INJ 40 MG/0.4 ML SYR SQ SCH (11:11)
[2020-11-17] MEDS: RANOLAZINE 500 MG ER TAB PO SCH ×2 (11:11→20:10)
[2020-11-17] MEDS: FOLIC ACID 400 MCG TAB PO SCH ×2 (11:11→20:07)
[2020-11-17] MEDS: MECLIZINE HCL 25 MG TAB PO SCH ×2 (13:56→20:05)
[2020-11-17] MEDS ORDERED: PANTOprazole 40 MG TAB PO SCH (21:00)
[2020-11-17] MEDS ORDERED: PRAVASTATIN SOD 40 MG TAB PO SCH (21:00)
[2020-11-17] MEDS ORDERED: CLOPIDOGREL BISULFATE 75 MG TAB PO SCH (21:00)
[2020-11-17] MEDS ORDERED: ASPIRIN 81 MG ECTAB PO SCH (21:00)
[2020-11-18 07:26] LABS: BUN Creatinine Ratio 13.2 (10-20); Calcium 8.5 mg/dl (8.5-10.1); Creatinine Clr Calc Pharmacy 59.2 ml/min; Est GFR (African American) 69.1; Est GFR (Non-African American) 59.6; Magnesium 2.1 mg/dl (1.8-2.4)
[2020-11-18] MEDS: VITAMIN B COMPLEX TAB PO SCH (08:03)
[2020-11-18] MEDS: amLODIPine BESYLATE 5 MG TAB PO SCH (08:03)
[2020-11-18] MEDS: METOPROLOL SUCC 50MG EXT REL TAB PO SCH (08:03)
[2020-11-18] MEDS: FOLIC ACID 400 MCG TAB PO SCH (08:03)
[2020-11-18] MEDS: DOCUSATE SODIUM 100 MG CAP PO SCH (08:03)
[2020-11-18] MEDS: CYANOCOBALAMIN 500 MCG TABLET (VITAMIN B-12) PO SCH (08:03)
[2020-11-18] MEDS: MECLIZINE HCL 25 MG TAB PO SCH ×2 (08:04→14:27)
[2020-11-18 08:07] LABS: Agglutinated RBC 3+; Eosinophils % (auto) 2.6 %; Hematocrit (blood only) 26.5 % (42-52); Hemoglobin 10.5 g/dL (14.0-18.0); Immature Granulocytes # (auto) 0.05 K/uL (0.00-0.02); Immature Granulocytes % (auto) 0.6 %; Lymphocytes # (auto) 1.75 K/uL (1.2-3.4); Lymphocytes % (auto) 22.6 %; Mean Corpuscular Hgb Conc 39.6 g/dL (32-36); Mean Platelet Volume 8.8 fL (7.4-10.4); Monocytes # (auto) 0.75 K/uL (0.11-0.59); Monocytes % (auto) 9.7 %; Neutrophils % (auto) 64.5 %; Platelet Count 270 K/uL (130-400); White Blood Count 7.75 K/uL (4.8-10.8)
[2020-11-18] MEDS ORDERED: RANOLAZINE 500 MG ER TAB PO SCH (09:00)
--- NOTE | 2020-11-18 10:13 | Ears,Nose,Throat Progress Note ---
Date of Service November 18, 2020 Assessment & Plan (1) Vertigo: Improved, avoid straining, heavy lifting, open mouth to sneeze, discussed with Dr. Figueroa (2) Cholesteatoma of attic of left ear: Merocel removed, gelfoam in place, keep dry, see me Sunday 11/26 Admission and Anticipated Discharge Date Admission Date: November 17, 2020 Subjective Improved, no dizziness, walking up and down the treviño with walker. Physical Exam Constitutional: WD/WN, vitals as above Eyes: PERRL, conjunctivae normal, anicteric sclerae ENMT: Ears: + mastoid abnormality (left canal, merocel packing removed, gelfoam in place) Neck: trachea midline, no thyromegaly Respiratory: normal respiratory effort Results & Data ([facility]) Vital Signs (Past 12 Hours) Vital Signs Temp Pulse Pulse Resp BP Pulse Ox 11/18/20 09:00 57 L 11/18/20 06:43 36.8 C 63 18 185/80 H 97 11/18/20 03:57 36.8 C 62 18 195/74 H 96 11/17/20 23:42 36.8 C 67 18 128/74 95 11/17/20 23:01 62
[2020-11-18] MEDS: ENOXAPARIN INJ 40 MG/0.4 ML SYR SQ SCH (10:55)
--- NOTE | 2020-11-18 14:37 | Discharge Summary ---
Date of Service November 18, 2020 Admission HPI Per Admitting Provider D6This patient is a-year-old male with a history of CAD with stents, MGUS and autoimmune hemolytic anemia, HTN, OA, GERD, PAD with right BKA, who presents to the ER the day after having a left modified radical tympanomastoidectomy with Dr. Irving for cholesteatoma with severe vertigo that started at 5 AM this morning. He denies any nausea or vomiting. Denies lightheadedness or syncope. No chest pain or shortness of breath. No abdominal pains. No fevers or chills. In the ER, he was found to have a mild leukocytosis, mild stable anemia, and electrolytes were otherwise fairly normal. ENT was consulted and saw him in the ER. I discussed the case with Dr. Irving who believes that the vertigo is due to the left lateral semicircular canal fistula with possible disturbance of the matrix of a cholesteatoma over the lateral semicircular canal fistula versus straining causing leakage of perilymph which is causing vertigo. He recommended treatment with meclizine and droperidol, however his QT C was borderline prolonged therefore I defer on the droperidol at this time. Patient was already feeling significantly improved with 1 dose of meclizine in the ER and half liter of normal saline. He will be admitted for vertigo. Principal Diagnosis Vertigo status post cholesteatoma surgery Discharge Exam Constitutional WD/WN, vitals as above Eyes + anicteric sclerae; no nystagmus ENMT Ears: + external ear abnormality (Left ear with sutures behind the ear and scant amount of dried blood ) Neck trachea midline, no thyromegaly Respiratory normal respiratory effort, lungs clear to auscultation Cardiovascular Rate/Rhythm: regular rate and regular rhythm Heart Sounds: + murmur (2/6 SOMMER at the RUSB) Extremities: + edema (Mild pitting edema 1+ in the left leg) Chest (Breasts) Chest: normal inspection of chest Gastrointestinal (Abdomen) normal bowel sounds, soft, nontender, no hepatosplenomegaly Musculoskeletal Extremities: + extremities abnormal to inspection (Right BKA), no cyanosis and no clubbing Skin no rashes, warm and dry + rash (Chronic venous stasis of left leg) Neurologic moves all extremities and awake; no focal motor deficits Psychiatric A+Ox3, euthymic affect Lymphatic no lymphedema Discharge Data Allergies Allergy/AdvReac Type Severity Reaction Status Date / Time prednisone Allergy Intermediate swelling, Verified 11/17/20 07:29 retained fluid Consultations 11/17/20 06:11 ED Decision to Admit Stat 11/17/20 10:29 Consult Otolaryngology (Head and Neck) Routine Hospital Course (1) Vertigo: Here with vertigo secondary to possible inner ear fluid leak with strain status post cholesteatoma surgery on 11/16 Appreciate ENT consultation Now completely resolved with time and meclizine 25 mg p.o. 3 times daily ENT remove some packing prior to discharge from the left ear. He is stable for discharge to home and will follow up with ENT in 1 week. -Was given half liter of normal saline in the ER, is able to take p.o. and can hydrate orally, is doing well with this -Prescription given for meclizine to use as needed at home -Continue to avoid straining or bearing down, no blowing of the nose advised, and use stool softener twice a day (2) Cholesteatoma of attic of left ear: As above, status post surgery for this on 11/16 Hydrocodone as needed for pain Otherwise as above (3) Anemia: Chronic and stable, has autoimmune hemolytic anemia and cold agglutinins, and MGUS as per hematology notes Is macrocytic Review of hematology notes shows that he just had labs drawn in 09/2020 with normal B12 and folate Hemoglobin stable here at 10.5 Continue folate and B12 supplementation as well as vitamin B complex (4) MGUS (monoclonal gammopathy of unknown significance): Follows with hematology (5) Acid reflux: Continue pantoprazole (6) Cold agglutinin disease: As above (7) Autoimmune hemolytic anemia: As above , Follow CBC as an outpatient (8) Coronary artery disease: Status post stents in the past No acute issues, ECG with nonspecific changes but no chest pain or shortness of breath on examination -Continue home dual antiplatelet therapy with aspirin and Plavix, continue metoprolol succinate 50 mg daily, and pravastatin 40 mg daily as well as Ranexa 500 mg p.o. twice daily Monitored on telemetry-had no acute events, remained in normal sinus rhythm with rates in the 50s to 60s (9) High cholesterol: Continue pravastatin (10) Hypertension: Blood pressures are normal Continue home amlodipine, metoprolol (11) Peripheral vascular disease: Status post intervention to the right lower extremity in the past but was unsuccessful and ended up with a right BKA Continue aspirin, Plavix, statin (12) Status post below knee amputation of right lower extremity: Noted, has prosthesis (13) Vitamin B12 deficiency: Continue B12 supplementation (14) Aortic stenosis: Mild as per echocardiogram in 05/2020 With murmur on examination consistent with such Follows with cardiology as an outpatient (15) DVT prophylaxis: Lovenox SQ SCD to the left lower extremity Disposition-stable for discharge to home Full code as per discussion with patient Total Time Total Time Spent Total Time Spent (In Minutes): 35 minutes Total Time Includes: Examination of the Patient, Discharge Planning, Medication Reconciliation and Communication With Other Providers (Dr. IRVING) Discharge Plan Discharge Items Patient Disposition: Home - Self-Care Reason For Visit: vertigo Discharge Diagnosis: Vertigo secondary to ear surgery Condition on Discharge: Good Activity: As commented below Lifting: No more than 5 pounds Bathing: No limitations Exercise/Sports: Gradually increase as tolerated Exercise Comment: Do not blow your nose or bear down heavily Non-emergency contact: Primary Care Provider and Surgeon Call non-emergency contact if: you have any medication questions, your symptoms worsen, your pain is not controlled and you have a fever Follow-up/Referrals: Lilian Olivarez MD [Primary Care Provider] - (Please follow-up within 1 to 2 weeks) Judith Irving MD [Physician] - (Please follow-up in 1 week as scheduled.) Diet: Heart Healthy Addtl Attending Provider Instructions: You are admitted with vertigo secondary to a minor complication from your surgery. You had significant improvement after using meclizine. Please follow- up with Dr. Irvnig in 1 week as directed. Please continue to use antibiotic ointment such as bacitracin swabbed inside the ear and behind the ear once or twice daily. Please avoid blowing your nose or bearing down heavily such as straining to have a bowel movement. Continue your stool softener and increase it to twice a day if needed. You can continue to take meclizine as needed and a prescription was provided for you. Follow-up with your primary care physician within 1 to 2 weeks. Pending Studies at Discharge: No Stand-Alone Forms: [facility] Medications and DC Order Prescriptions: New meclizine 25 mg Tablet 25 mg PO TID PRN (Reason: dizziness) Qty: 15 RF: 0 Continued (DME) Locking Prosthetic Liner Qty: 2 RF: 0 (DME) miscellaneous medical supply Misc See Rx Instructions .ROUTE .MEDSUPPLY Qty: 1 RF: 0 (DME) miscellaneous medical supply Misc See Rx Instructions .ROUTE .MEDSUPPLY Qty: 1 RF: 0 aspirin 81 mg tablet,delayed release (DR/EC) 81 mg PO QPM RF: 0 folic acid 800 mcg tablet 800 mcg PO BID RF: 0 cyanocobalamin (vitamin B-12) 250 mcg tablet 250 mcg PO QAM RF: 0 nitroglycerin 0.4 mg tablet, sublingual 0.4 mg sublingual Q5M PRN (Reason: Angina) RF: 0 ranolazine [Ranexa] 500 mg tablet extended release 12 hr 500 mg PO BID RF: 0 ferrous sulfate 325 mg (65 mg iron) tablet 325 mg PO Q OTHER DAY RF: 0 pravastatin 40 mg Tablet 40 mg PO QPM RF: 0 vitamin B complex Tablet 1 tab PO QAM RF: 0 metoprolol succinate 50 mg tablet extended release 24 hr 50 mg PO QAM RF: 0 clopidogrel 75 mg tablet 75 mg PO QPM RF: 0 amlodipine 5 mg tablet 5 mg PO QAM RF: 0 hydrocodone-acetaminophen 5-325 mg tablet 1 tab PO Q4H PRN (Reason: pain) Qty: 20 RF: 0 tadalafil [Cialis] 20 mg tablet 10 - 20 mg PO DIRECTED PRN (Reason: sexual activity) RF: 0 pantoprazole 40 mg tablet,delayed release (DR/EC) 40 mg PO QPM Qty: 0 RF: 0 Changed docusate sodium 100 mg capsule 100 mg PO BID Qty: 0 RF: 0 Discharge Orders: Discharge Order (Routine); Ordered 11/18/20 Ordered By: Candy Figueroa Admission Data Admit Date/Time: 11/17/20 09:32 Attending Provider: Candy Figueroa Admit Provider: Candy Figueroa Primary Care Provider: Lilian Olivarez Other Providers: Talon Castro ; Judith Irving Coding Level of Care Code 41467 OBS Care - Discharge Diagnoses Vertigo R42 Cholesteatoma of attic of left ear H71.02 Anemia D64.9 MGUS (monoclonal gammopathy of unknown significance) D47.2 Acid reflux K21.9 Cold agglutinin disease D59.1 Autoimmune hemolytic anemia D59.1 Coronary artery disease I25.10 High cholesterol E78.00 Hypertension I10 Peripheral vascular disease I73.9 Status post below knee amputation of right lower extremity Z89.511 Vitamin B12 deficiency E53.8 Aortic stenosis I35.0 DVT prophylaxis Z29.9
[2020-11-18] MEDS ORDERED: PRAVASTATIN SOD 40 MG TAB PO SCH (16:30)
--- NOTE | 2020-12-04 06:46 | Coding Query ---
CODING QUERY To promote full compliance with coding requirements relating to patient care, provider participation is requested in all cases of central communications specialist uncertainty. Please assist us with the question(s) below: Coding Question(s): Per Discharge Summary, Patient has "Vertigo secondary to Ear Surgery." Please clarify below: (x ) Vertigo is a complication of the procedure ( ) Vertigo is not a complication of the procedure ( ) Vertigo is an expected outcome of the procedure ( ) Other Please Explain: Thank you Dean Major Principal Diagnosis: "that condition established after study, to be chiefly responsible for occasioning the admission of the patient to the hospital for care." Co-Existing Principal Diagnosis: "when two or more diagnoses equally meet the criteria for principal diagnosis as determined by the circumstances of admission, diagnostic work up, and/or therapy provided, and the Alphabetic Index, Tabular List, or another coding guideline does not provide sequencing direction, any one of the diagnoses may be sequenced first." "When the physician has documented what appears to be a current diagnosis in the body of the record, but has not included the diagnosis in the final diagnostic statement, the physician should be asked whether the diagnosis should be added." (Source Coding Clinic 2 QTR90. p3-4) RIKA
== END 2020-11-18 15:12 | disposition home or self-care (01) ==
LOC: ED 05:33 → 2N 09:32 → INTOOBSV 09:32 → 2N 10:23

== ENCOUNTER 2024-12-05 15:14 | Inpatient (IN) ==
[2024-12-05] MEDS: ONDANSETRON INJ 2 MG/ML 2 ML VIAL IV STA (15:33)
[2024-12-05] MEDS: MoRPHine SULFATE 4 MG/ML 1 ML CARP\\VIAL IV STA (15:34)
--- NOTE | 2024-12-05 15:34 | Emergency Department Note ---
Impression & Plan Acute non-ST elevation myocardial infarction (NSTEMI), Chest pain, Abnormal EKG ED Provider Note NAME: GERRY TOLEDO AGE: 79 SEX: M : 1945 ARRIVES VIA: Ambulance INFORMANT: Patient, EMS ED PROVIDER(S): Colin Bhta DO CHIEF COMPLAINT: Chest pain HPI: The patient is an 79-year-old male who presented to the emergency department for an evaluation of chest pain. The patient describes anterior chest pain which began this morning. The patient describes no radiation of the pain. He denies having any abdominal pain. He denies having any back pain or difficulty breathing. He was treated with aspirin prior to arrival. The patient denies having any recent trauma. He has been compliant with his outpatient medication which includes antiplatelet medication. ROS: See above HPI for pertinent positives & negatives. A total of 10 systems reviewed and were otherwise negative. PAST MEDICAL HISTORY: See Below PAST SURGICAL HISTORY: See Below FAMILY HISTORY: See Below SOCIAL HISTORY: See Below HOME MEDICATIONS: See Below ALLERGIES: See Below VITALS: See Below PHYSICAL EXAMINATION: GENERAL: Patient is awake alert in no acute distress patient is resting comfortably and showing no signs of anxiety EYES: The conjunctivae are clear. The pupils are round and reactive. EARS, NOSE, MOUTH AND THROAT: The nose is without any evidence of any deformity. NECK: The neck is nontender and supple. RESPIRATORY: Normal respiratory effort is noted there is no evidence of wheezing rhonchi or rales CARDIOVASCULAR: Regular rate and rhythm was noted to auscultation. Systolic murmur was suggested. GASTROINTESTINAL: The abdomen is soft. Abdomen is nontender. PELVIS: The Pelvis is stable. No tenderness to palpation is noted. BACK: No midline tenderness or or step-off noted range of motion in flexion extension as well as rotation no signs of muscle spasm noted MUSCULOSKELETAL/EXTREMITIES: Bilateral lower extremity amputations were noted. SKIN: There is no obvious evidence of any rash. There are no petechiae, pallor or cyanosis noted. NEUROLOGIC: Patient is awake alert and oriented x3 MEDICAL DECISION MAKING: The patient is an 79-year-old male who presented to the emergency department by ambulance for an evaluation of chest pain. The patient had an EKG which showed widespread ischemia. It could actually also be due to a strain pattern given the patient's history of aortic stenosis but the patient's most recent EKG in our system showed significant changes. The patient was treated with aspirin prior to arrival. The patient was reevaluated multiple times. He was further treated with morphine. He was also started on heparin after his troponin was found to be elevated. I discussed the patient's condition with him. I discussed his condition with the on-call [facility] outsole scheduler. I did discuss possibility of his stat echocardiogram. Ultimately a stat echocardiogram was ordered after discussion with the admitting team. The patient was stating he was feeling much better on reevaluation. The patient's findings will likely require further inpatient management. Triage Nursing notes reviewed. Prior medical records reviewed Vital Signs: reviewed and remarkable for elevated blood pressure. Differential diagnosis: Cardiac ischemia, aortic dissection, pulmonary embolism, pneumothorax, pneumonia, pericarditis, myocarditis, esophageal rupture, GERD, cholecystitis, pancreatitis, musculoskeletal, as well as other pathologies. ER treatment provided: See below Diagnostics interpreted: EKG was obtained in the emergency department. My interpretation is normal sinus rhythm at 96 bpm. No PVCs were noted. Diffuse ST depressions were noted especially in the inferior and lateral leads. There was an incomplete left bundle branch block pattern noted. This was compared to a tracing from November 17, 2020. The ST segment abnormalities as well as the interventricular conduction delay are new compared to the previous tracing. A prehospital EKG was reviewed. My interpretation is normal sinus rhythm at 90 bpm. There was no PVCs noted. Similar ST depressions as well as interventricular conduction delay was noted. This compares similar to the tracing obtained in the emergency department. Cardiac Monitoring: An order was placed for continuous cardiac monitoring. The monitor shows a rate of 91 bpm with sinus rhythm. Laboratory studies: As stated above and show below. Imaging studies: See below. Radiographic imaging was reviewed by myself Consultation(s): I discussed this case with Dr. Quezada who is on-call for the [facility] cardiology group. Dr. Moscoso was notified about the patient. The team will evaluate the patient in the emergency department for further management and disposition. ED COURSE: Procedures: none Critical Care: I have personally spent greater than 45 minutes of critical care time in the direct management of this patient. This includes bedside care, interpretation of diagnostic studies, and testing, discussion with consultants, patient, and family members, and other required patient management activities. This 45 minutes is in excess of all separately billable procedures. 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 Anemia Vertigo (Acute) Conjunctivitis Chronic mastoiditis of left side Encounter for mastoidectomy cavity debridement Dysphagia Esophageal dysmotility Conductive hearing loss, bilateral Aortic stenosis Acid reflux (Chronic) Autoimmune hemolytic anemia (Chronic) 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 Coronary artery disease (Chronic) s/p stents x2 (2004), stent x1 (04/02/20) after abnormal stress test High cholesterol (Chronic) Hypertension (Chronic) Peripheral vascular disease (Chronic) 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) 2018 Medical History Dysphagia Osteoarthritis Hearing deficit Appendicitis Surgical History History of eye surgery 11/12/2022, repair of hole in macula H/O endoscopy NASAL ENDO - 02/2022 W/ DR KENDALL History of total left knee replacement (TKR) History of cholecystectomy History of tooth extraction upper partial History of procedure for peripheral vascular disease RLE cook zilver stent (2018) History of cardiac cath 2004 (stent x2) 04/02/2020 failed stress ([facility]) > proximal left circumflex arthrectomy and stent update now follows with dr hummel last visit 06/2021 H/O colonoscopy History of amputation of toe x2 (right big toe, 2nd toe) History of carpal tunnel surgery right wrist Hx of cataract surgery Family History Father Hearing loss Heart disease Myocardial infarction Hypertension Mother Heart disease Myocardial infarction Other No family history of adverse response to anesthesia No family history of allergies No family history of bleeding disorder Denies family history of Ovarian cancer Prostate cancer Breast cancer Colorectal cancer Cancer Stroke Social History Smoking Status: Never smoker Second Hand Exposure: No; Do You Dip or Chew Tobacco: No; Hx Alcohol Use: Yes Alcohol type: beer Alcohol Intake Frequency: 4 or More x per/Week Alcohol Intake Frequency Comment: 2-3 beers per day Hx Substance Use: No Preferred Language: Tamazight Communication Ability: Effective Visual Impairment: No Limitations Hearing Ability: Use of Hearing Aid Oracle Et[employer] Developer Required: No Beliefs That Will Affect Care: None marital status: / Current Living Situation: Alone current occupational status: retired How many Children do You have: 2 Feels Safe at Home: Yes Childhood Exposure to Second-Hand Smoke: No Diet: regular caffeine: No during the past year weight has: remained stable Dental Care, Regularly: Yes Physical Activity Frequency: Does not Exercise Seatbelt Use: always Sunscreen Use: No Assistive Devices: Glasses, Prosthesis and Wheelchair Allergies Allergies Allergy/AdvReac Type Severity Reaction Status Date / Time prednisone Allergy Intermediate swelling, Verified 12/05/24 16:51 retained fluid Home Meds Home Medications Medication Instructions Recorded Confirmed aspirin 81 mg tablet,delayed 81 mg PO QPM 03/22/19 12/05/24 release cyanocobalamin (vitamin B-12) 250 250 mcg PO QAM 03/22/19 12/05/24 mcg tablet nitroglycerin 0.4 mg sublingual 0.4 mg sublingual Q5M PRN Angina 05/04/20 12/05/24 tablet amoxicillin 500 mg capsule 2,000 mg PO DAILY PRN 1 hour prior 01/20/22 12/05/24 to appt docusate sodium 100 mg capsule 100 mg PO QAM 12/05/24 12/05/24 pravastatin 40 mg tablet 40 mg PO QPM 12/05/24 12/05/24 Previous Rx's Medication Instructions Recorded tadalafil 20 mg tablet (Cialis) 10 - 20 mg (0.5 - 1 x 20 mg) PO 04/14/23 DIRECTED PRN sexual activity #5 tabs Wheeled Walker #1 ea 07/31/23 miscellaneous medical supply #4 ea 09/30/23 clopidogrel 75 mg tablet 75 mg PO QPM #90 tabs 04/14/24 miscellaneous medical supply #1 ea 05/09/24 ranolazine 500 mg tablet,extended 500 mg PO BID #60 tabs 05/17/24 release,12 hr losartan 50 mg tablet 50 mg PO DAILY #90 tabs 05/18/24 metoprolol succinate 50 mg 50 mg PO QAM #90 tabs 06/07/24 tablet,extended release 24 hr pantoprazole 40 mg tablet,delayed 40 mg PO QPM #90 tabs 06/23/24 release Results & Data (ED) Vital Signs Vital Signs - 24 hr 12/05/24 14:54 12/05/24 15:16 12/05/24 16:30 Temperature 36.7 C Temperature Source Oral Pulse Rate 93 H 80 Pulse Rate [Apical] Respiratory Rate 18 Respiratory Effort / Characteristics Non-Labored Spontaneous Respiratory Depth Normal Respiratory Pattern Regular Blood Pressure 172/117 H Blood Pressure [Left Arm] Blood Pressure Mean 135 Blood Pressure Mean [Left Arm] Pulse Oximetry 100 100 Oxygen Delivery Method Room Air Room Air Sepsis Recent Fever Within 48 Hours No Sepsis New/Unexplained Change in Mental Status N/A Sepsis Action Taken by Nursing No Action Required 12/05/24 16:30 12/05/24 17:50 12/05/24 17:53 Temperature Temperature Source Pulse Rate 91 H Pulse Rate [Apical] 89 79 Respiratory Rate 18 22 18 Respiratory Effort / Characteristics Non-Labored Spontaneous Respiratory Depth Normal Respiratory Pattern Regular Blood Pressure 149/92 H Blood Pressure [Left Arm] 163/93 H 149/92 H Blood Pressure Mean Blood Pressure Mean [Left Arm] 116 111 Pulse Oximetry 98 97 98 Oxygen Delivery Method Room Air Room Air Room Air Sepsis Recent Fever Within 48 Hours Sepsis New/Unexplained Change in Mental Status Sepsis Action Taken by Custodial Medications Current Medication List: was personally reviewed by me Laboratory Data Attestation: I reviewed the patient's lab results. 12/05/24 15:26 12/05/24 15:26 Lab Results 12/05/24 Range/Units 15:26 WBC 8.65 (4.8-10.8) K/ul RBC (4.70-6.10) M/uL Hgb 10.1 L (14.0-18.0) g/dl Hct (42.0-52.0) % MCV (80.0-100.0) fL MCH (25.0-34.0) pg MCHC (32.0-36.0) g/dL Plt Count 224 (130-400) K/uL MPV 10.4 (9.4-12.4) fL Immature Gran % (Auto) 0.3 % Neut % (Auto) 75.9 % Lymph % (Auto) 15.6 % Pope % (Auto) 6.5 % Eos % (Auto) 0.8 % Baso % (Auto) 0.9 % Neut # (Auto) 6.56 H (1.40-6.50) K/uL Lymph # (Auto) 1.35 (1.20-3.40) K/uL Pope # (Auto) 0.56 (0.11-0.59) K/uL Eos # (Auto) 0.07 (0.00-0.50) K/uL Baso # (Auto) 0.08 (0.00-0.20) K/uL Immature Gran # (Auto) 0.03 (0.01-0.20) K/uL RBC Agglutinates 3+ PT 10.0 (9.0-12.0) Seconds INR 0.9 (0.9-1.1) APTT 27 (21-31) Seconds PTT Ratio 1.0 Sodium 136 (136-145) mmol/L Potassium 4.6 (3.5-5.1) mmol/L Chloride 105 (98-107) mmol/L Carbon Dioxide 25 (21-32) mmol/L Anion Gap 6 (3-11) BUN 17 (6-23) mg/dl Creatinine 1.43 H (0.6-1.4) mg/dl Est Cr Clr Drug Dosing 46.3 ml/min eGFR 49.53 BUN/Creatinine Ratio 11.9 (10-20) Glucose 112 H (70-99(Fasting)) mg/dl Calcium 8.7 (8.6-10.3) mg/dl Total Bilirubin 0.8 (0.2-1.0) mg/dl AST 31 (13-39) U/L ALT 14 (7-52) U/L Alkaline Phosphatase 54 (34-104) U/L Troponin I High Sens 54.0 H* (0-20) pg/ml Total Protein 6.3 (6.0-8.3) gm/dl Albumin 3.9 (3.4-5.0) gm/dl Globulin 2.4 L (2.5-4.0) gm/dl Albumin/Globulin Ratio 1.6 (0.9-2) Lipase 11 (11-82) U/L Administered Medications Heparin Sodium/Dextrose (Heparin 33485 Unit/500 Ml D5w) 25,000 units in 500 mls @ 19 mls/hr IV .Q24H LIVAN; Protocol Stop: 01/04/25 16:44 Last Admin: 12/05/24 16:38 Dose: 950 units/hr, 19 mls/hr Documented By: RYNE Co-signed By: VI Discontinued Medications Morphine Sulfate (Morphine Sulfate 4 Mg/Ml 1 Ml Carp\Vial) 4 mg IV NOW STA Stop: 12/05/24 15:23 Last Admin: 12/05/24 15:34 Dose: 4 mg Documented By: RYNE Ondansetron HCl (Ondansetron Inj 2 Mg/Ml 2 Ml Vial) 4 mg IV NOW STA Stop: 12/05/24 15:23 Last Admin: 12/05/24 15:33 Dose: 4 mg Documented By: RYNE Imaging Data Attestation: I personally reviewed and interpreted this imaging study as follows: My Impression: 1 view chest x-ray was obtained in the emergency department. My interpretation is no free air or definite infiltrate, final report below. Radiologist's Impression: Chest X-Ray 12/05/24 15:16 XR chest 1V portable HISTORY: 79 years-old Male Chest pain, nonspecific COMPARISON: 02/23/2013 TECHNIQUE: AP view of the chest FINDINGS: Cardiac silhouette is enlarged. Only vascular congestion with interstitial coarsening. Atherosclerosis of the aorta. Trace pleural effusions with mild bibasilar opacities. Degenerative changes of the shoulders and spine. IMPRESSION: 1. Cardiomegaly with pulmonary vascular congestion. 2. Trace pleural effusions with mild bibasilar densities, likely atelectatic. ACT 112: Negative or not required by law. The above report was generated using voice recognition software. It may contain grammatical, syntax or spelling errors. Electronically signed by: Kevin Constantino M.D. 12/05/2024 3:37 PM Discharge Plan Visit Data Chief Complaint: Chest Pain ED Provider: Home,Colin R Discharge Problem: Acute non-ST elevation myocardial infarction (NSTEMI), Chest pain, Abnormal EKG Patient Disposition: Being Evaluated by Hospitalist Discharge Instructions Interventions: ED Discharge Assessment Last Done: 12/05/24 17:53 Forms Stand Alone Forms: My [facility] [employer]digest Prescriptions Prescriptions: No Action (DME) Wheeled Walker [facility] See Rx Instructions .Route Qty: 1 0RF Rx Instructions: WALKER (DME) miscellaneous medical supply [facility] See Rx Instructions .ROUTE .MEDSUPPLY Qty: 4 0RF Rx Instructions: Locking prosthetic liner clopidogrel 75 mg tablet 75 mg PO QPM Qty: 90 3RF ranolazine 500 mg tablet extended release 12 hr 500 mg PO BID Qty: 60 3RF losartan 50 mg tablet 50 mg PO DAILY Qty: 90 3RF metoprolol succinate 50 mg tablet extended release 24 hr 50 mg PO QAM Qty: 90 3RF pantoprazole 40 mg tablet,delayed release (DR/EC) 40 mg PO QPM Qty: 90 1RF aspirin 81 mg tablet,delayed release (DR/EC) 81 mg PO QPM cyanocobalamin (vitamin B-12) 250 mcg tablet 250 mcg PO QAM tadalafil [Cialis] 20 mg tablet 10 - 20 mg PO DIRECTED PRN (Reason: sexual activity) Qty: 5 1RF Rx Instructions: Take 1/2 to 1 tab admin approx 30min before sexual activity; don't use more than 1 dose x24hrs nitroglycerin 0.4 mg tablet, sublingual 0.4 mg sublingual Q5M PRN (Reason: Angina) Rx Instructions: do not exceed 3 doses per episode (DME) miscellaneous medical supply [facility] See Rx Instructions .ROUTE .MEDSUPPLY Qty: 1 0RF Rx Instructions: socket for LLE prosthetic, given current socket is loose. [facility] amoxicillin 500 mg capsule 2,000 mg PO DAILY PRN (Reason: 1 hour prior to appt) pravastatin 40 mg tablet 40 mg PO QPM Rx Instructions: TAKE 1 TABLET EVERY EVENING docusate sodium 100 mg capsule 100 mg PO QAM Referrals Referrals: Lilian Olivarez MD [Primary Care Provider] -
--- NOTE | 2024-12-05 15:38 | XRay Report ---
XR chest 1V portable HISTORY: 79 years-old Male Chest pain, nonspecific COMPARISON: 02/23/2013 TECHNIQUE: AP view of the chest FINDINGS: Cardiac silhouette is enlarged. Only vascular congestion with interstitial coarsening. Atherosclerosi s of the aorta. Trace pleural effusions with mild bibasilar opacities. Degenerative changes of the sh oulders and spine. IMPRESSION: 1. Cardiomegaly with pulmonary vascular congestion. 2. Trace pleural effusions with mild bibasilar densities, likely atelectatic. ACT 112: Negative or not required by law. The above report was generated using voice recognition software. It may contain grammatical, syntax o r spelling errors. Electronically signed by: Kevin Constantino M.D. 12/05/2024 3:37 PM
[2024-12-05 16:06] LABS: Albumin Globulin Ratio 1.6 (0.9-2); Albumin Level 3.9 gm/dl (3.4-5.0); BUN Creatinine Ratio 11.9 (10-20); Bilirubin,Total 0.8 mg/dl (0.2-1.0); Calcium 8.7 mg/dl (8.6-10.3); Creatinine Clr Calc Pharmacy 46.3 ml/min; Globulin 2.4 gm/dl (2.5-4.0); Potassium 4.6 mmol/L (3.5-5.1); Total Protein 6.3 gm/dl (6.0-8.3)
[2024-12-05] MEDS ORDERED: Heparin IV Adult Wt-Based Low-Dose *NO* INITIAL Bolus Protocol IV STA (16:16)
[2024-12-05 16:23] LABS: INR 0.9 (0.9-1.1); Partial Thromboplastin Time 27 Seconds (21-31)
[2024-12-05] MEDS: HEPARIN 25000 UNIT/500 ML D5W 25,000 UNITS/500 ML BAG IV SCH (16:38)
--- NOTE | 2024-12-05 16:41 | History & Physical Report ---
Date of Service December 05, 2024 Assessment & Plan (1) ST segment abnormality: Plan: #ST changes #Chest Pain #Unstable Angina Patient with significant CAD s/p 3 ROBERT placements. Significant chest pain. New ST changes on EKG with slightly elevated troponin. Dr. Bhat discussed with Dr. Carlton - software implementation specialist and interventionalist tool honing machine set up operator. He recommended an ECHO and to hold off on calling a heart alert. I did discuss with Dr. Bhat that I was concerned he would not get the ECHO in a timely manner. Dr. Carlton said the ECHO could be done first thing in the morning since he's not planning on taking him to the veterinary laboratory diagnostician and if it was done now another software implementation specialist would need to read it. I discussed the case with Dr. Malone and he will look out for the ECHO if its been done as he is taking over as the software implementation specialist tool honing machine set up operator. Dr. Carlton is the interventionalist tool honing machine set up operator. avoid nitrites/nitrates as patient with severe and ST changes in the inferior leads EKG with CP, STAT ECHO trend trops, heparin gtt Morphine 2 mg IV Q30M PRN PCU/Tele #HTN #Prior Stents Continue ASA and Plavix. Continue antihypertensives and statin therapy. #Severe Patient likely preload dependent. Would hold on nitrites/nitrates and use morphine for CP. #Elevated Creatinine Has been elevated in the past. No mention of CKD in past 2 PCP notes. Would continue to monitor. #GERD Continue pantoprazole #ED Hold tadalafil Code status: full DVT ppx: heparin gtt FENGI: NPO Dispo: PCU/Tele (2) Severe aortic stenosis: (3) Chest pain: (4) Coronary artery disease: (5) Elevated serum creatinine: History of Present Illness Chief Complaint: CP Primary Care Provider: Lilian Olivarez MD 79 y/o with a PMHx of CAD s/p PCI with 3 ROBERT, HLD, HTN, and severe here for acute chest pain. Symptoms started after lunch. Patient thought it was indigestion and would go away on its own. Patient then was mowing the lawn and got about [address] through. He stopped and called an ambulance because his pain continued. Patient denies any radiation to the arm, jaw, back etc. No clamminess or sweating. No SOB. No recent illnesses, fevers, chills, nausea, or abdominal pain. Allergies Allergy/AdvReac Type Severity Reaction Status Date / Time prednisone Allergy Intermediate swelling, Verified 12/05/24 16:51 retained fluid Home Medications Medication Instructions Recorded Confirmed Type aspirin 81 mg tablet,delayed 81 mg PO QPM 03/22/19 12/05/24 History release cyanocobalamin (vitamin B-12) 250 250 mcg PO QAM 03/22/19 12/05/24 History mcg tablet nitroglycerin 0.4 mg sublingual 0.4 mg sublingual Q5M PRN Angina 05/04/20 12/05/24 History tablet amoxicillin 500 mg capsule 2,000 mg PO DAILY PRN 1 hour prior 01/20/22 12/05/24 History to appt tadalafil 20 mg tablet (Cialis) 10 - 20 mg (0.5 - 1 x 20 mg) PO 04/14/23 12/05/24 Rx DIRECTED PRN sexual activity #5 tabs Wheeled Walker #1 ea 07/31/23 11/07/24 Rx miscellaneous medical supply #4 ea 09/30/23 11/07/24 Rx clopidogrel 75 mg tablet 75 mg PO QPM #90 tabs 04/14/24 12/05/24 Rx miscellaneous medical supply #1 ea 05/09/24 11/07/24 Rx ranolazine 500 mg tablet,extended 500 mg PO BID #60 tabs 05/17/24 12/05/24 Rx release,12 hr losartan 50 mg tablet 50 mg PO DAILY #90 tabs 05/18/24 12/05/24 Rx metoprolol succinate 50 mg 50 mg PO QAM #90 tabs 06/07/24 12/05/24 Rx tablet,extended release 24 hr pantoprazole 40 mg tablet,delayed 40 mg PO QPM #90 tabs 06/23/24 12/05/24 Rx release docusate sodium 100 mg capsule 100 mg PO QAM 12/05/24 12/05/24 History pravastatin 40 mg tablet 40 mg PO QPM 12/05/24 12/05/24 History 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 05/30/22 [facility] Esophageal dysphagia Vitamin B12 deficiency (Chronic) Monoclonal paraproteinemia (Chronic) H/O heart artery stent (Chronic) 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 Anemia Vertigo (Acute) Conjunctivitis Chronic mastoiditis of left side Encounter for mastoidectomy cavity debridement Dysphagia Esophageal dysmotility Conductive hearing loss, bilateral Aortic stenosis Acid reflux (Chronic) Autoimmune hemolytic anemia (Chronic) 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 Coronary artery disease (Chronic) s/p stents x2 (2004), stent x1 (04/02/20) after abnormal stress test High cholesterol (Chronic) Hypertension (Chronic) Peripheral vascular disease (Chronic) 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) 2018 Medical History Dysphagia Osteoarthritis Hearing deficit Appendicitis Surgical History History of eye surgery 11/12/2022, repair of hole in macula H/O endoscopy NASAL ENDO - 02/2022 W/ DR KENDALL History of total left knee replacement (TKR) History of cholecystectomy History of tooth extraction upper partial History of procedure for peripheral vascular disease RLE cook zilver stent (2017) History of cardiac cath 2004 (stent x2) 04/02/2020 failed stress ([facility] [place]) > proximal left circumflex arthrectomy and stent update now follows with dr hummel last visit 06/2021 H/O colonoscopy History of amputation of toe x2 (right big toe, 2nd toe) History of carpal tunnel surgery right wrist Hx of cataract surgery Family History Father Hearing loss Heart disease Myocardial infarction Hypertension Mother Heart disease Myocardial infarction Other No family history of adverse response to anesthesia No family history of allergies No family history of bleeding disorder Denies family history of Ovarian cancer Prostate cancer Breast cancer Colorectal cancer Cancer Stroke Social History Smoking Status: Never smoker Second Hand Exposure: No; Do You Dip or Chew Tobacco: No; Hx Alcohol Use: Yes Alcohol type: beer Alcohol Intake Frequency: 4 or More x per/Week Alcohol Intake Frequency Comment: 2-3 beers per day Hx Substance Use: No Preferred Language: Syrian Communication Ability: Effective Visual Impairment: No Limitations Hearing Ability: Use of Hearing Aid Senior Business Intelligence Analyst Required: No Beliefs That Will Affect Care: None marital status: / Current Living Situation: Alone current occupational status: retired How many Children do You have: 2 Feels Safe at Home: Yes Childhood Exposure to Second-Hand Smoke: No Diet: regular caffeine: No during the past year weight has: remained stable Dental Care, Regularly: Yes Physical Activity Frequency: Does not Exercise Seatbelt Use: always Sunscreen Use: No Assistive Devices: Glasses, Prosthesis and Wheelchair Review of Systems 2 Review of Systems: See HPI Physical Exam 2 Physical Exam: Gen: well appearing patient in NAD HEENT: AT NC MMM Resp: CTAB no wheezing no increased work of breathing CV: RRR loud systolic murmur heard best LUSB, no extra heart sounds, clinically well perfused Abd: +BS, soft, non-tender, non-distended MSK: no obvious deformities Skin: no rashes or bruising Neuro: alert and oriented Psych: appropriate mood and affect Results & Data Results & Data Vital Signs (Past 12 Hours) Vital Signs Temp Pulse Pulse Resp BP BP Pulse Ox 12/05/24 16:30 89 18 163/93 H 98 12/05/24 16:30 80 12/05/24 15:16 100 12/05/24 14:54 36.7 C 93 H 18 172/117 H 100 O2 Del Method 12/05/24 16:30 Room Air 12/05/24 16:30 12/05/24 15:16 Room Air 12/05/24 14:54 Room Air Laboratory Results 12/05/24 15:26 12/05/24 15:26 Diagnostic Findings Chest X-Ray 12/05/24 15:16 FINDINGS: Cardiac silhouette is enlarged. Only vascular congestion with interstitial coarsening. Atherosclerosis of the aorta. Trace pleural effusions with mild bibasilar opacities. Degenerative changes of the shoulders and spine. IMPRESSION: 1. Cardiomegaly with pulmonary vascular congestion. 2. Trace pleural effusions with mild bibasilar densities, likely atelectatic. Supervising Physician Co-Signing Physician Notes ATTESTATION I also saw the patient and confirmed raya portions of the history and exam. I agree with the impression and plan in the resident documentation, and as summarized below. Onset of chest pain just after eating lunch. He thought it was indigestion initially and proceeded to start to mow the lawn (riding mower). He got the front yard done and the pain continued, so returned to house and call 911. At present, pain persists but less than previous. Documented cardiac history includes hypertension, hypercholesterolemia, mild LVH, aortic stenosis (moderate March 2022, October 2022; severe December 2023), mildly dilated ascending thoracic aorta (3.8 cm, March 2022; 3.6 cm, October 2022; 3.3 cm, December 2023), and his coronary artery disease (LCx stents x2, January 2005, March 2020). EXAM 163/93, 89, 18, 98% room air Alert and oriented. Talks in full and complete sentences without pause. A 2/6 crescendo decrescendo systolic murmur is heard loudest at the base, but transmitted thru-out. DATA Labs CBC pending Cr 1.43, BMP otherwise unremarkable Troponin 54 Imaging CXR with cardiomegaly and congestion, trace effusions ST depression inferiorly IMPRESSION & PLAN Chest pain with EKG change/Unstable angina History of CAD Elevated troponin Aortic stenosis HTN Consult cardiology Echocardiogram Heparin GTT Morphine PRN chest pain Additional per resident documentation Resident Activity Tracking Resident Involvement: Resident Care Provided Care Provided: Adult Hospital Medicine
[2024-12-05] MEDS ORDERED: MoRPHine SULFATE 2 MG/ML CARP IV PRN (17:03)
[2024-12-05] MEDS ORDERED: NITROGLYCERIN SL 0.4 MG/TAB TAB SL PRN (17:31)
[2024-12-05 17:40] LABS: White Blood Count 8.65 K/ul (4.8-10.8)
[2024-12-05 17:41] LABS: Basophils # (auto) 0.08 K/uL (0.00-0.20); Basophils % (auto) 0.9 %; Eosinophils # (auto) 0.07 K/uL (0.00-0.50); Eosinophils % (auto) 0.8 %; Immature Granulocytes # (auto) 0.03 K/uL (0.01-0.20); Immature Granulocytes % (auto) 0.3 %; Lymphocytes # (auto) 1.35 K/uL (1.20-3.40); Lymphocytes % (auto) 15.6 %; Mean Platelet Volume 10.4 fL (9.4-12.4); Monocytes # (auto) 0.56 K/uL (0.11-0.59); Monocytes % (auto) 6.5 %; Neutrophils # (auto) 6.56 K/uL (1.40-6.50); Neutrophils % (auto) 75.9 %; Platelet Count 224 K/uL (130-400)
[2024-12-05 17:43] LABS: Hemoglobin 10.1 g/dl (14.0-18.0)
[2024-12-05 17:44] LABS: Agglutinated RBC 3+
[2024-12-05] MEDS: SODIUM CHLORIDE 0.9% 1,000 ML IV SCH (18:34)
--- NOTE | 2024-12-05 19:20 | XCELERA ---
[id number]
--- NOTE | 2024-12-05 19:44 | Cardiology Consultation ---
Date of Consultation December 05, 2024 Assessment & Plan (1) Acute non-ST elevation myocardial infarction (NSTEMI): (2) Severe aortic stenosis: (3) Hypertension: (4) High cholesterol: (5) Coronary artery disease: (6) Pulmonary hypertension: Plan ASSESSMENT/PLAN: 1. NSTEMI: Presentation consistent with acute coronary syndrome/NSTEMI. Currently chest pain-free (at the time of evaluation shortly after 7 PM). Continue heparin drip. Has received aspirin. Chronically on dual antiplatelet therapy. Continue Plavix. Monitor for bleeding. N.p.o. after midnight. Recommend coronary angiography. He is agreeable. If he should have recurrent chest discomfort that does not resolve quickly, recommend urgent cardiac catheterization. Otherwise, n.p.o. after midnight in anticipation of coronary angiography tomorrow. Cardiac rehab. 2. Severe aortic stenosis: Given presentation with angina, consider aortic valve replacement evaluation. Possibly contributing to his presentation. 3. CAD s/p complex PCI x 2: Symptoms consistent with prior angina. Continue dual antiplatelet therapy. Recommend high intensity statin therapy in the place of pravastatin. Continue heparin. Continue beta-bre. Coronary angiography as above. 4. Hypertension: Blood pressure has mostly been elevated but improved more recently. Continue current regimen for now. Can make adjustments as appropriate. 6. Dyslipidemia: Continue statin therapy and consider high intensity statin t herapy. Most recent lipid profile was excellent. Mediterranean diet. 7. Peripheral arterial disease s/p right lower extremity angioplasty/stent: Has bilateral below the knee amputation. No reported claudication. Unclear if he follows with vascular but would consider such in the outpatient setting. 8. Pulmonary hypertension: He appears euvolemic on exam. Can consider right heart catheterization but would defer to interventional cardiology. 9. Disposition: Dr. Carlton will continue his cardiology care while hospitalized over the next few days. Patient care discussed with him and he p lans on pursuing coronary angiography tomorrow unless urgent indication should arise. Patient care communicated with primary hospitalist service, Dr. Martinez, and attending hospitalist, Dr. Moscoso. Highly complex medical issues. Thank you for allowing me to participate in the care of your patient. Please call for any other questions or concerns. Sincerely, Jesse Malone M.D. History of Present Illness Reason for Consultation: NSTEMI Requesting Physician: Oliver Moscoso DO Attending Physician: Oliver Moscoso DO History of Present Illness Mr. Ortiz is a very pleasant 79-year-old gentleman with history significant for CAD s/p Cx PCI x 2 (2004 and 2019), significant aortic stenosis, hypertension, dyslipidemia, mildly dilated ascending aorta, peripheral arterial disease s/p right lower extremity stent, and bilateral BKA (secondary to PAD and infection). His primary amortization clerk is Dr. Mir. He was last seen by Dr. Mir on 08/29/2024. He was hospitalized earlier today on 12/05/2024 with angina. I was notified by Dr. Martinez of the hospitalist service that he had significant ST abnormalities on ECG and ongoing chest pain with elevated troponin. She reported that a stat echo was being performed. He developed substernal chest discomfort which was the same feeling he had with prior angina prompting PCI in 2004 and 2019. It occurred after eating lunch at approximately noon but did not resolve. He took Tums with no improvement. He then rode on his riding mower but due to persistent symptoms, called for EMS at 2 PM. Symptoms resolved at approximately 1800, after approximately 6 hours of pain. There was no radiation of the pain and no associated shortness of breath. When he was seen at the bedside today for this consultation, shortly after 7 PM, he remained chest pain-free. He denies shortness of breath, syncope, near syncope, palpitations, edema, or bleeding such as melena, hematochezia, or hematuria. He has been experiencing intermittent chest discomfort which he believed was indigestion. Symptoms would typically occur after eating and would resolve quickly with Tums. The chest discomfort has been intermittently occurring for the past few months. Review of systems: As above. Family history: Father at 58 but he does not know the details. His mother at 93. Social history: He denies tobacco, alcohol, or drug abuse. He is a (spouse in 2019). He lives alone. 2 sons who live in [place]. He was unaccompanied in his hospital room. Allergies Allergy/AdvReac Type Severity Reaction Status Date / Time prednisone Allergy Intermediate swelling, Verified 12/05/24 16:51 retained fluid Home Medications Medication Instructions Recorded Confirmed Type aspirin 81 mg tablet,delayed 81 mg PO QPM 03/22/19 12/05/24 History release cyanocobalamin (vitamin B-12) 250 250 mcg PO QAM 03/22/19 12/05/24 History mcg tablet nitroglycerin 0.4 mg sublingual 0.4 mg sublingual Q5M PRN Angina 05/04/20 12/05/24 History tablet amoxicillin 500 mg capsule 2,000 mg PO DAILY PRN 1 hour prior 01/20/22 12/05/24 History to appt tadalafil 20 mg tablet (Cialis) 10 - 20 mg (0.5 - 1 x 20 mg) PO 04/14/23 12/05/24 Rx DIRECTED PRN sexual activity #5 tabs Wheeled Walker #1 ea 07/31/23 11/07/24 Rx miscellaneous medical supply #4 ea 09/30/23 11/07/24 Rx clopidogrel 75 mg tablet 75 mg PO QPM #90 tabs 04/14/24 12/05/24 Rx miscellaneous medical supply #1 ea 05/09/24 11/07/24 Rx ranolazine 500 mg tablet,extended 500 mg PO BID #60 tabs 05/17/24 12/05/24 Rx release,12 hr losartan 50 mg tablet 50 mg PO DAILY #90 tabs 05/18/24 12/05/24 Rx metoprolol succinate 50 mg 50 mg PO QAM #90 tabs 06/07/24 12/05/24 Rx tablet,extended release 24 hr pantoprazole 40 mg tablet,delayed 40 mg PO QPM #90 tabs 06/23/24 12/05/24 Rx release docusate sodium 100 mg capsule 100 mg PO QAM 12/05/24 12/05/24 History pravastatin 40 mg tablet 40 mg PO QPM 12/05/24 12/05/24 History Problem List Pulmonary hypertension Abnormal EKG (Acute) Chest pain (Acute) Acute non-ST elevation myocardial infarction (NSTEMI) (Acute) Elevated serum creatinine Chest pain ST segment abnormality Severe aortic stenosis 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, 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 05/30/22 [facility] Esophageal dysphagia Vitamin B12 deficiency (Chronic) Monoclonal paraproteinemia (Chronic) H/O heart artery stent (Chronic) 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 Anemia Vertigo (Acute) Conjunctivitis Chronic mastoiditis of left side Encounter for mastoidectomy cavity debridement Dysphagia Esophageal dysmotility Conductive hearing loss, bilateral Aortic stenosis Acid reflux (Chronic) Autoimmune hemolytic anemia (Chronic) follows with [facility] thumb sewer Coronary artery disease (Chronic) s/p stents x2 (2004), stent x1 (04/02/20) after abnormal stress test High cholesterol (Chronic) Hypertension (Chronic) Peripheral vascular disease (Chronic) 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) 2018 Patient History Medical History Dysphagia Osteoarthritis Hearing deficit Appendicitis Surgical History History of eye surgery 11/12/2022, repair of hole in macula H/O endoscopy NASAL ENDO - 02/2022 W/ DR KENDALL History of total left knee replacement (TKR) History of cholecystectomy History of tooth extraction upper partial History of procedure for peripheral vascular disease RLE cook zilver stent (2018) History of cardiac cath 2004 (stent x2) 04/02/2020 failed stress ([facility]) > proximal left circumflex arthrectomy and stent update now follows with dr hummel last visit 06/2021 H/O colonoscopy History of amputation of toe x2 (right big toe, 2nd toe) History of carpal tunnel surgery right wrist Hx of cataract surgery Family History Father Hearing loss Heart disease Myocardial infarction Hypertension Mother Heart disease Myocardial infarction Other No family history of adverse response to anesthesia No family history of allergies No family history of bleeding disorder Denies family history of Ovarian cancer Prostate cancer Breast cancer Colorectal cancer Cancer Stroke Social History Smoking Status: Never smoker Second Hand Exposure: No; Do You Dip or Chew Tobacco: No; Hx Alcohol Use: No Hx Substance Use: No Preferred Language: Faroese Communication Ability: Effective Visual Impairment: No Limitations Hearing Ability: Use of Hearing Aid [employer] Salesperson Required: No Beliefs That Will Affect Care: None marital status: / Current Living Situation: Alone current occupational status: retired How many Children do You have: 2 Other Information That Helps Us Care for You: No Feels Safe at Home: Yes Safety Concerns: Feels Safe At This Time Childhood Exposure to Second-Hand Smoke: No Diet: regular caffeine: No during the past year weight has: remained stable Dental Care, Regularly: Yes Physical Activity Frequency: Does not Exercise Seatbelt Use: always Sunscreen Use: No Assistive Devices: Hearing Aid - Right, Walker and Wheelchair Physical Exam Physical Exam: Gen.: No acute distress. Alert and oriented. HEENT: Anicteric sclera. Neck: Thick neck. Bilateral bruits vs radiation of cardiac murmur. Normal carotid upstrokes bilaterally. Cardiac: Regular. Normal S1. Soft S2. 2/6 late peaking systolic ejection murmur heard best at right upper sternal border. No rubs or gallops. Pulmonary: Clear to auscultation bilaterally without wheezes, rales, or rhonchi. Abdomen: Soft, nontender, nondistended, with normoactive bowel sounds. No bruits noted. Extremities: Bilateral radial and ulnar pulses were nonpalpable. Bilateral hands were warm and pink. 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 No cyanosis. Psychiatric: Affect appears appropriate. Results & Data Vital Signs (Past 12 Hours) Vital Signs Temp Pulse Pulse Resp BP BP BP 12/05/24 18:48 98 H 12/05/24 18:37 12/05/24 18:13 36.4 C L 88 16 148/61 H 12/05/24 18:10 12/05/24 18:10 36.4 C L 88 16 148/61 H 12/05/24 17:53 91 H 18 149/92 H 12/05/24 17:50 79 22 149/92 H 12/05/24 16:30 89 18 163/93 H 12/05/24 16:30 80 12/05/24 15:16 12/05/24 14:54 36.7 C 93 H 18 172/117 H Pulse Ox Pulse Ox O2 Del Method O2 Del Method 12/05/24 18:48 12/05/24 18:37 Room Air 12/05/24 18:13 95 Room Air 12/05/24 18:10 95 Room Air 12/05/24 18:10 95 Room Air 12/05/24 17:53 98 Room Air 12/05/24 17:50 97 Room Air 12/05/24 16:30 98 Room Air 12/05/24 16:30 12/05/24 15:16 100 Room Air 12/05/24 14:54 100 Room Air Laboratory Results Laboratory Results - last 24 hr 12/05/24 12/05/24 15:26 17:17 WBC 8.65 RBC Hgb 10.1 L Hct MCV MCH MCHC Plt Count 224 MPV 10.4 Immature Gran % (Auto) 0.3 Neut % (Auto) 75.9 Lymph % (Auto) 15.6 Sully % (Auto) 6.5 Eos % (Auto) 0.8 Baso % (Auto) 0.9 Neut # (Auto) 6.56 H Lymph # (Auto) 1.35 Sully # (Auto) 0.56 Eos # (Auto) 0.07 Baso # (Auto) 0.08 Immature Gran # (Auto) 0.03 RBC Agglutinates 3+ PT 10.0 INR 0.9 APTT 27 PTT Ratio 1.0 Sodium 136 Potassium 4.6 Chloride 105 Carbon Dioxide 25 Anion Gap 6 BUN 17 Creatinine 1.43 H Est Cr Clr Drug Dosing 46.3 eGFR 49.53 BUN/Creatinine Ratio 11.9 Glucose 112 H Calcium 8.7 Total Bilirubin 0.8 AST 31 ALT 14 Alkaline Phosphatase 54 Troponin I High Sens 54.0 H* 460.8 H* D Total Protein 6.3 Albumin 3.9 Globulin 2.4 L Albumin/Globulin Ratio 1.6 Lipase 11 Diagnostic Findings Labs reviewed and notable for upward trending high-sensitivity troponin up to 460 thus far; mildly abnormal but stable renal function, normal potassium, normal transaminase levels, chronic and stable anemia. Labs from 08/23/2024 demonstrated excellent LDL. History and physical report reviewed. Outpatient cardiology note reviewed from 08/29/2024. ECG personally reviewed 12/05/2024 at 1521: Sinus [address] depression/T wave abnormality. Marked inferior ST depression/T wave abnormality. Inferior and anterior ST depression new compared to 11/17/2020 ECG. ECG personally reviewed 12/05/2024 at 1918: Sinus rhythm 84 bpm. PVCs. Significant improvement of ST depression in the inferior and anterior leads. Nonspecific ST abnormality. Echo 12/05/2024 report reviewed: LVEF 40-45%. Mid and distal anterior, anteroseptal, septal, and apical hypokinesis to akinesis. Normal RV systolic function. Mild left atrial dilation. Severe aortic stenosis (PV 4.1; MG 36; MADISYN 0.6; DI 0.18). Mild MR. Mild to moderate TR. Severe pulmonary hypertension. RVSP approximately 60 mmHg. Chest x-ray 12/05/2024: Pulmonary vascular congestion per radiology. Medications Administered Current Inpatient Medications Aspirin (Aspirin 81 Mg Ectab) 81 mg PO QPM [facility] Stop: 01/04/25 20:59 Last Admin: 12/05/24 20:11 Dose: 81 mg Clopidogrel Bisulfate (Clopidogrel Bisulfate 75 Mg Tab) 75 mg PO QPM [facility] Stop: 01/04/25 20:59 Last Admin: 12/05/24 20:11 Dose: 75 mg Docusate Sodium (Docusate Sodium 100 Mg Cap) 100 mg PO QAM [facility] Stop: 01/05/25 08:59 Heparin Sodium/Dextrose (Heparin 43735 Unit/500 Ml D5w) 25,000 units in 500 mls @ 19 mls/hr IV .Q24H [facility]; Protocol Stop: 01/04/25 16:44 Last Titration: 12/05/24 19:09 Dose: 950 units/hr, 19 mls/hr Sodium Chloride (Nss) 1,000 mls @ 80 mls/hr IV .[id number] [facility] Stop: 12/06/24 06:29 Last Admin: 12/05/24 18:34 Dose: 80 mls/hr Losartan Potassium (Losartan Potassium 50 Mg Tab) 50 mg PO DAILY [facility] Stop: 01/05/25 08:59 Metoprolol Succinate (Metoprolol Succ 50mg Ext Rel Tab) 50 mg PO QAM [facility] Stop: 01/05/25 08:59 Morphine Sulfate (Morphine Sulfate 2 Mg/Ml Carp) 2 mg IV Q30M PRN PRN Reason: Pain Stop: 12/19/24 17:02 Nitroglycerin (Nitroglycerin Sl 0.4 Mg/Tab Tab) 0.4 mg SL Q5M PRN PRN Reason: Angina Stop: 01/04/25 17:30 Pantoprazole Sodium (Pantoprazole 40 Mg Tab) 40 mg PO QPM [facility] Stop: 01/04/25 20:59 Last Admin: 12/05/24 20:12 Dose: 40 mg Pravastatin Sodium (Pravastatin Sod 40 Mg Tab) 40 mg PO QPM [facility] Stop: 01/04/25 20:59 Last Admin: 12/05/24 20:12 Dose: 40 mg Ranolazine (Ranolazine 500 Mg Er Tab) 500 mg PO BID [facility] Stop: 01/04/25 20:59 Last Admin: 12/05/24 20:11 Dose: 500 mg PG Care Time/CCT Total # of Minutes Spent Total Time Spent with Patient: Total time spent is greater than 50% in coordination of care (as documented) at patient's floor/unit and/or counseling patient: Coding Level of Care Code 96977 INT INP/OBS CARE 3/75MIN Diagnoses Acute non-ST elevation myocardial infarction (NSTEMI) I21.4 Severe aortic stenosis I35.0 Hypertension I10 High cholesterol E78.00 Coronary artery disease I25.10 Pulmonary hypertension I27.20
[2024-12-05] MEDS: ASPIRIN 81 MG ECTAB PO SCH (20:11)
[2024-12-05] MEDS: CLOPIDOGREL BISULFATE 75 MG TAB PO SCH (20:11)
[2024-12-05] MEDS: RANOLAZINE 500 MG ER TAB PO SCH (20:11)
[2024-12-05] MEDS: PRAVASTATIN SOD 40 MG TAB PO SCH (20:12)
[2024-12-05] MEDS: PANTOprazole 40 MG TAB PO SCH (20:12)
[2024-12-06 00:23] LABS: ANTI-Xa, UFH(UnfractionatedHep 0.34 IU/ml (0.3-0.7)
[2024-12-06 06:54] LABS: ANTI-Xa, UFH(UnfractionatedHep 0.38 IU/ml (0.3-0.7)
[2024-12-06 06:55] LABS: BUN Creatinine Ratio 11.4 (10-20); Calcium 8.6 mg/dl (8.6-10.3); Chol HDL Ratio 1.8 (0-5); Creatinine Clr Calc Pharmacy 51.7 ml/min; Potassium 4.4 mmol/L (3.5-5.1)
--- NOTE | 2024-12-06 07:19 | Hospitalist Progress Note ---
Date of Service December 06, 2024 Assessment & Plan (1) ST segment abnormality: Plan: 79 y/o with a PMHx of CAD s/p PCI with 3 ROBERT, HLD, HTN, and severe here for acute anteroseptal SD. Planned for coronary catheterization today. #Acute non ST elevation anteroseptal SD Cardio on board. Patient with significant CAD s/p 3 ROBERT placements. Significant chest pain on presentation. New ST changes on EKG with elevated serial troponin. Avoid nitrites/nitrates as patient with severe and ST changes in the inferior leads Echo: New changes noted, with mildly reduced EF, Mid to distal anterior, esequiel septal ,apical Hypo to akinesis. Continue heparin gtt Morphine 2 mg IV Q30M PRN Coronary Catheterization today. #HTN Continue ASA and Plavix. Continue antihypertensives and statin therapy. #Severe - cardio on board - Given presentation with angina, consider aortic valve replacement evaluation. #Pulmonary hypertension appears euvolemic on exam. interventional cardiology Dr. Carlton on board, appreciate recs. #Elevated Creatinine Improved to normal range today. Cr( 12/06): 1.32 eGFR: 54. Would continue to monitor. Peripheral arterial disease s/p right lower extremity angioplasty/stent - S/P BL below knee amputation, with prosthesis on. - no new concern, outpatient vascular f.u #GERD: Continue pantoprazole #ED:Hold tadalafil #Dyslipidemia: Continue current statin Code status: full DVT ppx: heparin gtt FENGI: NPO Dispo: Home once stable (2) Severe aortic stenosis: (3) Chest pain: (4) Coronary artery disease: (5) Elevated serum creatinine: Admission and Anticipated Discharge Date Admission Date: December 05, 2024 Supervising Physician Co-Signing Physician Notes ATTESTATION I also saw the patient and confirmed raya portions of the history and exam. I agree with the impression and plan in the resident documentation, and as summarized below. I also discussed the case with the pipe racker. Patient seen post cath. He has been chest pain free since about 7 PM last evening. EXAM VSS Alert and oriented. CV RRR; 2/6 SOMMER Lungs CTA DATA Labs HgB 9 Cr 1.32, BMP otherwise unremarkable Troponin peak 9293 LDL 33 IMPRESSION & PLAN NSTEMI, POA History of CAD Elevated troponin Aortic stenosis HTN Discussed with cardiology. Patient will need transfer for high risk lesion, +/- aortic repair CTA now Will discuss findings with patient; [place] [facility] [place] Will coordinate transfer pending all of the above Additional per resident documentation Subjective Overnight stable, no chest pain after admission. No SOB now, able to walk. Aware about cath procedure today. No new complain/ questions. Review of Systems Review of Systems: As per HPI Physical Exam Physical Exam: Constitutional: Well appearing, No acute distress HEENT: Atraumatic, Normocephalic, No conjunctival injection CVS: S1 S2, systolic murmur+, Regular Rhythm, Respiratory: BL equal air entry with NVBS. No rhonchi, wheezes, or crackles. No increased work of breathing GI: Nondistended MSK: No gross deformities noted Skin: Warm, Dry, No rashes Neuro: Alert, Oriented to TPP, No Focal deficit Psych: Mood and Affect congruent, Cooperative on exam Results & Data Results & Data Vital Signs (Past 12 Hours) Vital Signs Temp Pulse Pulse Resp BP Pulse Ox O2 Del Method 12/06/24 03:17 36.6 C 91 H 18 124/88 94 Room Air 12/05/24 23:10 36.4 C L 74 19 112/66 94 Room Air 12/05/24 22:56 68 12/05/24 20:21 Room Air 12/05/24 19:55 36.5 C 69 18 137/83 97 Room Air
[2024-12-06 08:16] LABS: Hematocrit (blood only) 26.3 % (42.0-52.0); Mean Corpuscular Hemoglobin 31.9 pg (25.0-34.0); Mean Corpuscular Hgb Conc 34.2 g/dL (32.0-36.0); Mean Corpuscular Volume 93.3 fL (80.0-100.0); Mean Platelet Volume 10.1 fL (9.4-12.4); Platelet Count 210 K/uL (130-400); RDW Coefficient of Variation 14.4 % (11.5-14.5); RDW Standard Deviation 48.7 fL (36.4-46.3); Red Blood Count 2.82 M/uL (4.70-6.10); White Blood Count 6.15 K/ul (4.8-10.8)
[2024-12-06 08:18] LABS: Estimated Average Glucose 71 mg/dl; Hemoglobin A1C 4.1 % (4.5-5.6)
[2024-12-06] MEDS: METOPROLOL SUCC 50MG EXT REL TAB PO SCH (09:00)
[2024-12-06] MEDS: LOSARTAN POTASSIUM 50 MG TAB PO SCH (09:00)
[2024-12-06] MEDS: DOCUSATE SODIUM 100 MG CAP PO SCH (09:04)
--- NOTE | 2024-12-06 10:58 | Pre Anesthesia Assessment ---
Date of Service December 06, 2024 Pre Sedation Assessment Vital Signs Temp Pulse Pulse Resp BP BP BP 12/06/24 10:23 60 18 115/75 12/06/24 08:00 12/06/24 07:00 36.7 C 76 19 138/75 12/06/24 03:17 36.6 C 91 H 18 124/88 12/05/24 23:10 36.4 C L 74 19 112/66 12/05/24 22:56 68 12/05/24 20:21 12/05/24 19:55 36.5 C 69 18 137/83 12/05/24 18:48 98 H 12/05/24 18:37 12/05/24 18:13 36.4 C L 88 16 148/61 H 12/05/24 18:10 12/05/24 18:10 36.4 C L 88 16 148/61 H 12/05/24 17:53 91 H 18 149/92 H 12/05/24 17:50 79 22 149/92 H 12/05/24 16:30 89 18 163/93 H 12/05/24 16:30 80 12/05/24 15:16 12/05/24 14:54 36.7 C 93 H 18 172/117 H Pulse Ox Pulse Ox O2 Del Method O2 Del Method 12/06/24 10:23 98 Room Air 12/06/24 08:00 Room Air 12/06/24 07:00 93 Room Air 12/06/24 03:17 94 Room Air 12/05/24 23:10 94 Room Air 12/05/24 22:56 12/05/24 20:21 Room Air 12/05/24 19:55 97 Room Air 12/05/24 18:48 12/05/24 18:37 Room Air 12/05/24 18:13 95 Room Air 12/05/24 18:10 95 Room Air 12/05/24 18:10 95 Room Air 12/05/24 17:53 98 Room Air 12/05/24 17:50 97 Room Air 12/05/24 16:30 98 Room Air 12/05/24 16:30 12/05/24 15:16 100 Room Air 12/05/24 14:54 100 Room Air Cardiovascular Additional Comments: loud SM UE without palpable pulses Respiratory normal respiratory effort, lungs clear to auscultation Pre-Sedation Airway Assessment Smoking Status: Never smoker Hx Sleep Apnea: No Short, Thick Neck: No Thyromental Distance: > or= 3.5 Finger Breadths Oral Cavity: + WNL Mallampati Class: IV ASA: ASA4 NPO Status Date of Last Intake of Fluids: 12/06/24 Time of Last Intake of Fluids: 08:00 Date of Last Intake of Solid Food: 12/05/24 Time of Last Intake of Solid Foods: 12:00 Notes The planned sedation has been discussed with the patient. Informed Consent was obtained. I have identified the patient, determined the appropriateness of sedation and have assessed the patient immediately prior to the procedure. All medicine(s) and interventions are by my order.
[2024-12-06] MEDS: NITROGLYCERIN/D5W 100MCG/ML 20ML SYR ONE (11:37)
[2024-12-06] MEDS: IODIXANOL (VISIPAQUE) 320 MG/ML 100ML IV ONE (11:38)
[2024-12-06] MEDS: fentaNYL citrate PF 100 MCG/2 ML VIAL ONE (11:42)
[2024-12-06] MEDS: MIDAZOLAM HCL 1 MG/ML 2ML VIAL ONE (11:44)
[2024-12-06] MEDS: HEPARIN (PORCINE) 1000 UNIT/ML 10 ML (CATH LAB USE ONLY) ONE (11:44)
--- NOTE | 2024-12-06 11:51 | Post Anesthesia Assessment ---
Date of Service December 06, 2024 Post Sedation Assessment Vital Signs Temp Pulse Pulse Resp BP BP BP 12/06/24 10:23 60 18 115/75 12/06/24 08:00 55 L 12/06/24 08:00 12/06/24 07:00 36.7 C 76 19 138/75 12/06/24 03:17 36.6 C 91 H 18 124/88 12/05/24 23:10 36.4 C L 74 19 112/66 12/05/24 22:56 68 12/05/24 20:21 12/05/24 19:55 36.5 C 69 18 137/83 12/05/24 18:48 98 H 12/05/24 18:37 12/05/24 18:13 36.4 C L 88 16 148/61 H 12/05/24 18:10 12/05/24 18:10 36.4 C L 88 16 148/61 H 12/05/24 17:53 91 H 18 149/92 H 12/05/24 17:50 79 22 149/92 H 12/05/24 16:30 89 18 163/93 H 12/05/24 16:30 80 12/05/24 15:16 12/05/24 14:54 36.7 C 93 H 18 172/117 H Pulse Ox Pulse Ox O2 Del Method O2 Del Method 12/06/24 10:23 98 Room Air 12/06/24 08:00 12/06/24 08:00 Room Air 12/06/24 07:00 93 Room Air 12/06/24 03:17 94 Room Air 12/05/24 23:10 94 Room Air 12/05/24 22:56 12/05/24 20:21 Room Air 12/05/24 19:55 97 Room Air 12/05/24 18:48 12/05/24 18:37 Room Air 12/05/24 18:13 95 Room Air 12/05/24 18:10 95 Room Air 12/05/24 18:10 95 Room Air 12/05/24 17:53 98 Room Air 12/05/24 17:50 97 Room Air 12/05/24 16:30 98 Room Air 12/05/24 16:30 12/05/24 15:16 100 Room Air 12/05/24 14:54 100 Room Air Recovery Score Activity: Moves 4 extremities Respiration: Deep Breath/Cough Circulation: +/-20% PreAnes Value Consciousness: Fully Awake Oxygen Saturation: > 92% On Room Air Discharge Sedation Level of Care: Fast Track Phase II Post Sedation Plan On clinical assessment, the patient appears to have tolerated the sedation without complications. Patient is recovering as anticipated. Patient will continue to be monitored by nursing and may be discharged when sedation discharge criteria are met per below protocol. Upon Completions of procedure up to 15 minutes continue every 5 minute vital signs and the P.A.R. score; then discharge to a Phase I or Fast Track to Phase II per the following guidelines: * Discharge Patient to appropriate Phase II area if PAR is 8 or greater or return to pre- procedure baseline. The post - procedure orders will be as directed. * If PAR score is less than 8 or not return to pre-procedure baseline then patient will follow Phase I monitoring till PAR is reached for Phase II. The Phase I may be done in procedure room or may call to secure a Phase I area. * If naloxone or flumazenil are used for reversal, hold in Phase I for continued monitoring from when last reversal dose was given for a minimum of 60 minutes or longer pending the nurse and/or physician discretion of patient condition before discharge to Phase II. Please call the Sedation Physician to re-evaluate and complete post-note for discharge to Phase II area. Do NOT discharge from procedure sedation or Phase 1 until post- sedation evaluation note is complete by procedure /sedation MD Sedation Discharge Instructions to be given to the patient at discharge to home.
[2024-12-06 13:28] VITALS: TEMP 97.3
[2024-12-06 15:30] VITALS: PULSE 70; RESP 18; O2SAT 100
[2024-12-06] MEDS: OPTIRAY 320 125ml IV ONE (15:37)
--- NOTE | 2024-12-06 16:02 | CT Scan Report ---
CT ANGIOGRAPHY OF THE CHEST CLINICAL HISTORY: Chest pain. COMPARISON STUDY: Chest radiograph December 05, 2024. TECHNIQUE: Arterial phase imaging of the chest was performed following intravenous injection of 118 c c of Optiray 320 IV. Sagittal and coronal reformats were viewed as well as maximal intensity projecti ons on an independent 3-D workstation. A dose lowering technique was utilized adhering to the princip les of POONAM. FINDINGS: The caliber of the thoracic aorta is normal, measuring 3.4 cm at the level the main pulmona ry artery. There is no thoracic aortic dissection. There is moderate plaque within the thoracic aorta . Extensive aortic valvular calcification is present. There is also extensive coronary artery calcifi cation. The heart is mildly enlarged. There is no pericardial effusion. No pneumothorax is present. T here are trace bilateral pleural effusions. There is no thoracic lymphadenopathy. No consolidation is identified to suggest pneumonia. The gallbladder is surgically absent. Visualized portions of the up per abdomen are unremarkable. IMPRESSION: 1. No thoracic aortic dissection. Normal caliber thoracic aorta. 2. Extensive aortic valvular calcification. 3. Extensive coronary artery calcifications. 2. Moderate cardiomegaly. 4. Trace bilateral pleural effusions. ACT 112: Negative or not required by law. Electronically signed by: Van Meza M.D. 12/06/2024 4:01 PM
--- NOTE | 2024-12-06 17:54 | Cardiology Progress Note ---
Date of Service December 06, 2024 Assessment & Plan (1) Acute non-ST elevation myocardial infarction (NSTEMI): Plan: The LAD lesion corresponds to the new wall motion abnormality. We did not see any ongoing thrombus or reduction in DEONTE flow in the LAD. That may have cleared with the heparin overnight as well as aspirin and medical treatment. His other vessels seem to be similar to prior cath. We will continue guideline directed medical therapy for secondary prevention. He is currently on aspirin 81 mg daily, Plavix 75 mg daily, losartan 50 mg daily, metoprolol succinate ER 50 mg daily, and pravastatin 40 mg daily. The complex nature of the LAD stenos is in combination with his valvular heart disease is considered inappropriate to perform at this institution. Therefore, he will need transfer to a a tertiary center for valve replacement and coronary revascularization. If his STS risk is not excessive then surgical aortic valve replacement and single-vessel bypass may be his best option. I do have concerns about his vasculopathy, and diminished EF. (2) Severe aortic stenosis: Plan: This complicates revascularization. If he is deemed not to be a surgical candidate then TAVR may be reasonable (further evaluation of the entire aorta would need to be completed). An apical approach could be considered as well. The LAD/left main PCI would be risky if the valve was not corrected first and Impella support for left main to ostial LAD stenting could not be utilized with uncorrected severe aortic stenosis. Plan I have reached out to Dr. Anselmo Arevalo from [facility] cardiac surgery who is on-call today. I have asked him to review the imaging from today. Anticipate that we will move forward with transfer to [facility] for AVR and LAD revascularization. This should be completed while the patient is still an inpatient given his initial unstable presentation. However, there may be a several day delay since he not only had MS but is on Plavix which would preclude immediate surgical treatment. On the other hand, if they feel percutaneous approach with TAVR plus PCI is a better option then the Plavix should continue and the procedure could be done sooner. Admission and Anticipated Discharge Date Admission Date: December 05, 2024 Subjective 79-year-old gentleman who presented yesterday with onset of sudden chest discomfort/pressure. He has a history of bilateral lower extremity amputation. He has known severe aortic stenosis which was reportedly asymptomatic as of his last cardiology visit. Troponin nahum overnight. His chest pressure was relieved with heparin and medication. I took him to the cardiac catheterization suite today where he underwent diagnostic coronary angiography. Previous stent was patent. However, he had a severe ostial LAD stenosis which also likely involve the distal left main. Given the severe aortic stenosis I spoke with him about aortic valve replacement and revascularization of the LAD. Review of Systems Review of Systems: Negative except as per HPI Physical Exam Physical Exam: Gen.: No acute distress. Alert and oriented. HEENT: Anicteric sclera. Neck: Thick neck. Bilateral bruits vs radiation of cardiac murmur. Normal caroti d upstrokes bilaterally. Cardiac: Regular. Normal S1. Soft S2. 2/6 late peaking systolic ejection murmur heard best at right upper sternal border. No rubs or gallops. Pulmonary: Clear to auscultation bilaterally without wheezes, rales, or rhonchi. Abdomen: Soft, nontender, nondistended, with normoactive bowel sounds. No bruits noted. Extremities: Bilateral radial and ulnar pulses were nonpalpable. Bilateral hands were warm and pink. 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 No cyanosis. Psychiatric: Affect appears appropriate. Results & Data Vital Signs (Past 12 Hours) Vital Signs Temp Pulse Pulse Resp BP BP Pulse Ox 12/06/24 14:55 70 18 121/55 L 100 12/06/24 14:25 73 16 142/76 H 98 12/06/24 14:03 70 12/06/24 13:55 70 20 120/45 L 99 12/06/24 13:42 69 16 124/64 100 12/06/24 13:25 66 16 118/49 L 99 12/06/24 13:10 36.3 C L 68 18 117/63 99 12/06/24 12:45 59 L 14 105/58 L 99 12/06/24 12:30 65 14 113/82 100 12/06/24 12:15 80 14 120/68 100 12/06/24 10:23 60 18 115/75 98 12/06/24 08:00 55 L 12/06/24 08:00 12/06/24 07:00 36.7 C 76 19 138/75 93 O2 Del Method 12/06/24 14:55 Room Air 12/06/24 14:25 Room Air 12/06/24 14:03 12/06/24 13:55 Room Air 12/06/24 13:42 Room Air 12/06/24 13:25 Room Air 12/06/24 13:10 Room Air 12/06/24 12:45 Room Air 12/06/24 12:30 Room Air 12/06/24 12:15 Room Air 12/06/24 10:23 Room Air 12/06/24 08:00 12/06/24 08:00 Room Air 12/06/24 07:00 Room Air PG Care Time/CCT Total # of Minutes Spent Total Time Spent with Patient: Total time spent is greater than 50% in coordination of care (as documented) at patient's floor/unit and/or counseling patient: Coding Level of Care Code 81383 SUB INP/OBS CARE 3/50MIN Diagnoses Acute non-ST elevation myocardial infarction (NSTEMI) I21.4 Severe aortic stenosis I35.0
[2024-12-06] MEDS ORDERED: POLYETHYLENE (MIRALAX) 17 GM PACK PO PRN (17:58)
[2024-12-06] MEDS ORDERED: MELATONIN 3 MG TAB PO PRN (17:58)
[2024-12-06 20:16] VITALS: BP 105/58
--- NOTE | 2024-12-07 06:48 | Discharge Summary ---
Date of Service December 07, 2024 Admission HPI Per Admitting Provider 79 y/o with a PMHx of CAD s/p PCI with 3 ROBERT, HLD, HTN, and severe here for acute chest pain. Symptoms started after lunch. Patient thought it was indigestion and would go away on its own. Patient then was mowing the lawn and got about [address] through. He stopped and called an ambulance because his pain continued. Patient denies any radiation to the arm, jaw, back etc. No clamminess or sweating. No SOB. No recent illnesses, fevers, chills, nausea, or abdominal pain. Admission Exam Per Admitting Provider Gen: well appearing patient in NAD HEENT: AT NC MMM Resp: CTAB no wheezing no increased work of breathing CV: RRR loud systolic murmur heard best LUSB, no extra heart sounds, clinically well perfused Abd: +BS, soft, non-tender, non-distended MSK: no obvious deformities Skin: no rashes or bruising Neuro: alert and oriented Psych: appropriate mood and affect Principal Diagnosis Non ST elevation GA due to near complete LAD stenosis at level of ostium. Severe Aortic Stenosis. Discharge Exam Constitutional: Well appearing, No acute distress HEENT: Atraumatic, Normocephalic, No conjunctival injection CVS: S1 S2, systolic murmur+, Regular Rhythm, Respiratory: BL equal air entry with NVBS. No rhonchi, wheezes, or crackles. No increased work of breathing GI: Nondistended MSK: No gross deformities noted Skin: Warm, Dry, No rashes Neuro: Alert, Oriented to TPP, No Focal deficit Psych: Mood and Affect congruent, Cooperative on exam Discharge Data Allergies Allergy/AdvReac Type Severity Reaction Status Date / Time prednisone Allergy Intermediate swelling, Verified 12/05/24 16:51 retained fluid Consultations 12/05/24 16:34 ED Decision to Admit Stat 12/05/24 17:01 Consult Cardiology Stat 12/06/24 16:41 Burn CD for patient Stat Procedures Performed Operation Date: 12/06/24 11:00 Actual Procedures p Cineradiography w/Routine Exam - Angel Carlton MD, PhD p Cath, Coronaries ONLY (no LV) - Angel Carlton MD, PhD Ordered Studies 12/06/24 11:00 CL Cath Imgs for PACS use only Routine 12/06/24 14:20 CT angio chest w con Stat Hospital Course (1) ST segment abnormality: 79 y/o with a PMHx of CAD s/p PCI with 3 ROBERT, HLD, HTN, and severe here for acute anteroseptal GA. Admitted for acute GA, coronary catheterization revealed near complete blockade of LAD at level of ostium. Considering high risk procedure here at [facility], patient was referred to [facility] for further care. #Acute non ST elevation with LAD obstruction at ostial level. - refer [place] [facility] [place]. - Continue DAPT and Heparin infusion on the way. - NPO continued. #Severe - refer [place] [facility] [place]. - [facility] [place] aware of this diagnosis. (2) Severe aortic stenosis: (3) Chest pain: (4) Coronary artery disease: (5) Elevated serum creatinine: Total Time Total Time Spent Total Time Spent (In Minutes): Oliver Schaeffer DO, attending physician, spent 40 minutes myself seeing the patient, discussing and reviewing results with cardiology, reviewing the chart, and documenting today. Discharge Plan Discharge Items Patient Disposition: Transfer Acute Care Hospital Reason For Visit: CP Discharge Diagnosis: Acute non ST elevation GA with severe LAD stenosis at level of Ostium. Severe Aortic Stenosis S/P Below Leg amputation for PAD. Condition on Discharge: Fair Activity: Per Instructions section Non-emergency contact: Primary Care Provider and Business Analytics Intern Call non-emergency contact if: your pain is worsening Follow-up/Referrals: Lilian Olivarez MD [Primary Care Provider] - Diet: Heart Healthy Addtl Attending Provider Instructions: You are being transferred to [facility] under care of . Business Analytics Intern at [facility], team of Dr. Carlton diagnosed very severe almost complete stenosis of LAD at level of ostium, which is complex stenosis to correct here surgically, hence they recommended you to be transferred to Tertiary care center. Dr. Booker is aware of your situation and they plan to accept you to do needful. They know about severity of your aortic stenosis as well. Both aortic valve and LAD will be taken care of. Please continue Heparin drip until you reach [place] and they will guide you ahead. Pending Studies at Discharge: No Stand-Alone Forms: My [facility] Skilled Items Patient informed of condition?: Yes DNR: No Discharge Level of Care: Other Communicable Disease: No Discharge Prognosis: Other Lines: Peripheral IV Urinary Catheter: No Medications and DC Order Prescriptions: New losartan 50 mg Tablet 50 mg PO DAILY Qty: 0 0RF pravastatin 40 mg Tablet 40 mg PO QPM Qty: 0 0RF clopidogrel 75 mg Tablet 75 mg PO QPM Qty: 0 0RF aspirin 81 mg Tablet,Delayed Release (Dr/Ec) 81 mg PO QPM Qty: 0 0RF ranolazine 500 mg Tablet Extended Release 12 Hr 500 mg PO BID Qty: 0 0RF morphine 2 mg/mL Syringe 2 mg IV Q30M PRN (Reason: pain) Qty: 0 0RF pantoprazole 40 mg Tablet,Delayed Release (Dr/Ec) 40 mg PO QPM Qty: 0 0RF docusate sodium 100 mg Capsule 100 mg PO QAM Qty: 0 0RF Continued (DME) Wheeled Walker [facility] [place] .Route Qty: 1 0RF Rx Instructions: WALKER ([facility] miscellaneous medical supply [facility] [place] .ROUTE .MEDSUPPLY Qty: 4 0RF Rx Instructions: Locking prosthetic liner clopidogrel 75 mg tablet 75 mg PO QPM Qty: 90 3RF ranolazine 500 mg tablet extended release 12 hr 500 mg PO BID Qty: 60 3RF losartan 50 mg tablet 50 mg PO DAILY Qty: 90 3RF metoprolol succinate 50 mg tablet extended release 24 hr 50 mg PO QAM Qty: 90 3RF pantoprazole 40 mg tablet,delayed release (DR/EC) 40 mg PO QPM Qty: 90 1RF aspirin 81 mg tablet,delayed release (DR/EC) 81 mg PO QPM cyanocobalamin (vitamin B-12) 250 mcg tablet 250 mcg PO QAM (DME) miscellaneous medical supply [facility] See Rx Instructions .ROUTE .MEDSUPPLY Qty: 1 0RF Rx Instructions: socket for LLE prosthetic, given current socket is loose. [facility] pravastatin 40 mg tablet 40 mg PO QPM Rx Instructions: TAKE 1 TABLET EVERY EVENING docusate sodium 100 mg capsule 100 mg PO QAM Held tadalafil [Cialis] 20 mg tablet 10 - 20 mg PO DIRECTED PRN (Reason: sexual activity) Qty: 5 1RF Hold Instructions: Resume on 12/23/24. Rx Instructions: Take 1/2 to 1 tab admin approx 30min before sexual activity; don't use more than 1 dose x24hrs nitroglycerin 0.4 mg tablet, sublingual 0.4 mg sublingual Q5M PRN (Reason: Angina) Hold Instructions: Resume on 12/17/24. Rx Instructions: do not exceed 3 doses per episode Discontinued amoxicillin 500 mg capsule 2,000 mg PO DAILY PRN (Reason: 1 hour prior to appt) Discharge Orders: Discharge Order (Routine); Ordered 12/06/24 Ordered By: Magalys Del Cid Admission Data Admit Date/Time: 12/05/24 16:52 Attending Provider: Oliver Moscoso Admit Provider: Margaret Martinez Primary Care Provider: Lilian Olivarez Other Providers: Oliver Moscoso; Angel Carlton Other Interventions: Discharge Summary Assessment (RN) Last Done: 12/06/24 20:15 Supervising Physician Co-Signing Physician Notes ATTESTATION I also saw the patient and confirmed raya portions of the history and exam. I agree with the impression and plan in the resident documentation, and as summarized below. I also discussed the case with the engineering manager electronics. Patient seen post cath. He has been chest pain free since about 7 PM last evening. EXAM VSS Alert and oriented. CV RRR; 2/6 SOMMER Lungs CTA DATA Labs HgB 9 Cr 1.32, BMP otherwise unremarkable Troponin peak 9293 LDL 33 IMPRESSION & PLAN NSTEMI, POA History of CAD Elevated troponin Aortic stenosis HTN Discussed with cardiology. Patient will need transfer for high risk lesion, +/- aortic repair CTA prior to transfer Will discuss findings with patient; images sent [place] [facility] [place] Will coordinate transfer pending all of the above. Medical necessary transfer via ALS to facility that offers necessary surgical procedure. Additional per resident documentation
--- NOTE | 2024-12-07 19:49 | Cardiac Catheterization ---
[facility] Data: [place] Manager Cardiac Status Clinical evaluation leading to the procedure CAD Presenation: Non STEMI Anginal Classification: CCS IV Heart Failure: No Cardiogenic Shock within 24 Hours: No Cardiac Arrest within 24 Hours: No Imaging Studies Past 6 Months: Yes Stress Studies Past 6 Months: No STEMI OR Non-STEMI Symptom Onset Date: 12/05/24 Coronary Anatomy Dominant: Right Left Main (% Stenosis): Distal (Up to 60%) LAD (% Stenosis): Ostial (95%) and Mid (70%) D1 (% Stenosis): Proximal (50 to 60%) Circumflex (% Stenosis): Ostial (50 percent) and Proximal (Stent patent) OM1 (% Stenosis): Normal OM2 (% Stenosis): Normal L PL1 (% Stenosis): Normal RCA (% Stenosis): Proximal (50 to 70%) and Mid (30 to 40%, stent patent) R PDA (% Stenosis): Normal R PL1 (% Stenosis): Normal Diagnostic Physicians Name: Angel Carlton MD, PhD Closure Device Percutaneous Entry Location: Femoral Closure Device: None-Manual Hold Recommendations: Medical Therapy and/or Counseling, CABG and Valve Replacement Cardiac Cath Procedure Full Procedure Date December 06, 2024 Pre-Procedure Diagnosis Pre-Procedure Diagnosis: Non STEMI and Valvular Disease AUC Score AUC Score: 09 Post-Procedure Diagnosis Post-Procedure Diagnosis: Severe CAD Procedure(s) Performed Procedure(s) Performed: Coronary Angiography and Ultrasound Guided Vascular Access Manual Winder Angel Carlton MD, PhD Estimated Blood Loss Estimated Blood Loss: 10 cc Medication(s) Medication(s): Fentanyl, Lidocaine 1% and Versed Summary of Findings Brief description: Patient was brought to the cardiac catheterization suite where he was shaved and prepped in a sterile fashion. Sedated using IV Versed and fentanyl. Soft tissue to the right groin were anesthetized using 10 mL of 1% Xylocaine. Using the ultrasound for guidance (image saved), the right femoral artery was accessed and a 5 Georgian femoral artery sheath was placed. However, decision was made to exchanged this for a longer 25 cm 5 Georgian femoral artery sheath over the wire. All catheters were then advanced and exchanged over a 0.035 J-tip wire. Left coronary angiography in orthogonal views with a 5 Georgian JL 5 diagnostic catheter. Right coronary angiography in orthogonal views with a 5 Georgian JR4 diagnostic catheter. Diagnostic catheters were removed. Limited right femoral artery angiography was performed to evaluate for closure. Findings were favorable, therefore, we attempted to exchange the femoral artery sheath for a 6 Georgian Angio-Seal closure device. This included increasing the 5 Georgian sheath to a 6 Georgian normal length sheath. We also employed an Amplatz stiff wire. Despite this, we could not deliver the Angio-Seal closure device. Therefore, sheath was removed and hemostasis was obtained using manual compression. Patient remained hemodynamically stable and asymptomatic. He was then returned to the recovery area in stable condition. This ended the case. Coronary angiography findings: [id number] and short vessel. Bifurcates into the LAD and circumflex. It is calcified with distal 60% stenosis which appears that may extend into the ostium of the LAD and circumflex. NTP-ycrhb-sfdrwew and transapical vessel. Ostial 95% calcified stenosis. No thrombus appreciated. He gives a large branching first diagonal. This has 50 to 60% stenosis just before its first branch point. Difficult to see but the mid LAD appears to have relatively short prior stent with mild in-stent restenosis. The distal vessel has no more than mild luminal irregularities. LVp-qhbar-udjvdon and nondominant. There may be an ostial stenosis as an extension of the left main disease. There is a proximal stent which is patent. Circumflex gives a small OM1 and small OM 2. Distally it provides a large posterolateral which has mild scattered plaques. RCA-this is large caliber and apparently dominant. Proximally there is calcification with 50 to 70% stenosis. The mid vessel has 30 to 40% stenosis and a stent which appears patent. It then provides a large PDA and posterolateral branch which has no disease. Summary: 1. Severe coronary artery disease including the distal left main in some views, ostial and mid LAD, and borderline disease in the diagonal. Prior stents are patent. 2. Patient has known severe aortic stenosis which was reportedly asymptomatic previously. 3. Recommend continue guideline directed medical therapy for secondary prevention of coronary artery disease. 4. Recommend transfer to tertiary center regarding combined severe aortic stenosis and severe coronary artery disease. Heart team discussion of surgical versus percutaneous approach to these issues. Hemodynamics Rest Ao:: 117/58 mmHg Final Ao: 111/57 mmHg LV: Not performed Recommendations Recommendations: Medical Therapy and/or Counseling, CABG and Valve Replacement Radiation Exposure (mGy) 1346 mGy, fluoroscopy time 4.4 minutes Contrast (mls) 125 cc Anesthesia 1 mg Versed, 25 mcg fentanyl IV. Start time 1120, end time 1203 Procedural Complication(s) None Disposition ICU I attest to the content of the Intraoperative Record and any orders documented therein. Any exceptions are noted below. MNP Card Cath Procedure Codes Cardiac Catheterization Procedure 1: Cardiovascular Cath Procedures: 20416 Coronaries Therapeutic Services & Ancillary Procedure 2: Cardiovascular Tx and Anc Procedures: 62303 Ultrasonic Guidance Vascular Access Moderate Sedation Procedure 1: Sedation/Anesthesia: 30551 Mod Sedation by the same physician;Init15 Min Child Age 5 & Up (Initial 15 minutes, start time 1120) Procedure 2: Sedation/Anesthesia: 33102 Mod Sedation by the same physician; Ea [id number] Minutes (Additional 28 minutes, end time 1203) PG Care Time/CCT Total # of Minutes Spent Total Time Spent with Patient: Total time spent is greater than 50% in coordination of care (as documented) at patient's floor/unit and/or counseling patient:
--- NOTE | 2024-12-08 09:06 | Electrocardiogram Report ---
Test Reason : Blood Pressure : */* mmHG Vent. Rate : 96 BPM Atrial Rate : 96 BPM P-R Int : 200 ms QRS Dur : 104 ms QT Int : 360 ms P-R-T Axes : 69 4 240 degrees QTcB Int : 454 ms Normal sinus rhythm Marked ST abnormality, possible inferior subendocardial injury Marked ST abnormality, possible anterolateral subendocardial injury Abnormal ECG When compared with ECG of 17-Nov-2020 05:50, Vent. rate has increased by [address] depression has replaced ST elevation in Inferior leads ST now depressed in Anterolateral leads T wave inversion less evident in Inferior leads T wave inversion now evident in Lateral leads Confirmed by Angel Carlton ([id number]) on 12/08/2024 9:06:35 AM Referred By: REFERRED SELF Confirmed By: Angel Carlton
--- NOTE | 2024-12-08 09:19 | Electrocardiogram Report ---
Test Reason : Blood Pressure : */* mmHG Vent. Rate : 84 BPM Atrial Rate : 84 BPM P-R Int : 98 ms QRS Dur : 112 ms QT Int : 392 ms P-R-T Axes : * -1 266 degrees QTcB Int : 463 ms Sinus rhythm with short IA with occasional Premature ventricular complexes and Premature atrial compl exes Low voltage QRS Anteroseptal infarct , possibly acute ACUTE NC / STEMI Abnormal ECG When compared with ECG of 05-Dec-2024 15:21, (unconfirmed) Significant changes have occurred Confirmed by Angel Carlton ([id number]) on 12/08/2024 9:19:15 AM Referred By: REFERRED SELF Confirmed By: Angel Carlton
== END 2024-12-06 20:16 | disposition short-term general hospital (02) | DRG 282 ==
LOC: ED 15:14 → OBSVTOIN 16:52 → 2S 16:52 → INTOOBSV 16:52 → 2S 17:53
PROC: CLB.CCO (2024-12-06 11:00)